=== PATIENT | female | born 1940 | race Caucasian/White ===

== ENCOUNTER 2022-07-26 18:20 | Emergency (ER) | payer OTHER, SELFPAY ==
[2022-07-26 18:30] VITALS: BP 131/58; PULSE 92; RESP 20; TEMP 36.3; O2SAT 99
--- NOTE | 2022-07-26 19:19 | ED.DIZZY ---
HPI - Dizziness General Chief Complaint: Urogenital-Female Stated Complaint: Urinary Problem Time Seen by Provider: 07/26/22 19:15 Source: patient, family, RN notes reviewed and old records reviewed Mode of arrival: ambulatory Limitations: no limitations Related Data Home Medications Medication Instructions Recorded Confirmed insulin human U-100 NPH-regulr subcut 07/26/22 70-30 mix 100 unit/mL subcutaneous susp (Novolin 70/30 U-100 Insulin) isosorbide mononitrate 30 mg 30 mg PO DAILY 07/26/22 07/26/22 tablet,extended release 24 hr lisinopril 5 mg tablet 5 mg DAILY 07/26/22 07/26/22 metformin 750 mg tablet,extended 750 mg PO DAILY 07/26/22 07/26/22 release 24 hr Allergies Allergy/AdvReac Type Severity Reaction Status Date / Time iodine Allergy Unknown Verified 07/26/22 18:32 Course Vital Signs Vital signs: Vital Signs Temperature 36.3 C L 07/26/22 18:30 Pulse Rate 92 07/26/22 18:30 Respiratory Rate 20 07/26/22 18:30 Blood Pressure 131/58 L 07/26/22 18:30 Pulse Oximetry 99 07/26/22 18:30 Oxygen Delivery Room Air 07/26/22 18:30 Temperature 36.3 C L 07/26/22 18:30 Pulse Rate 92 07/26/22 18:30 Respiratory Rate 20 07/26/22 18:30 Blood Pressure 131/58 L 07/26/22 18:30 Pulse Oximetry 99 07/26/22 18:30 Oxygen Delivery Room Air 07/26/22 18:30 MDM - Dizziness Medical Records Attestation: I reviewed the patient's medical records. Lab Data Attestation: I reviewed the patient's lab results. Lab results narrative: urine dip: Glucose negative, bilirubin negative, ketone, negative, specific gravity 1.030, blood trace,urine PH 5.5, protein negative,urobilinogen 0.2nitrate positive, leukocyte 1+ Labs: Urine Glucose Negative Reference Range: Negative Urine Bilirubin Negative Reference Range: Negative Urine Ketone Negative Reference Range: Negative Urine Specific Ada 1.030 Reference Range:1.001-1.035 Urine Blood Trace Reference Range: Negative * * Urine pH 5.5 Reference Range: 5.0-9.0 Urine Protein Negative Reference Range: Negative Urine Urobilinogen 0.2 Reference Range: 0.2-1.0 Urine Nitrate Positive Reference Range: Negative Urine Leukocyte 1+ Reference Range: Negative Urine Color Yellow Reference Range: Yellow Urine Characteristics Cloudy Critical Care Time Critical Care Time Critical Care Time: No Discharge Plan Discharge Clinical Impression: Urinary tract infection Patient Disposition: Home, Self-Care Condition: Stable Instructions: Antibiotic Form Additional Instructions: Increase fluids especially cranberry juice and water Avoid caffeine and carbonated beverages Antibiotic as directed No perfumed personal hygiene Tylenol/ibuprofen for pain or fever Follow-up with her primary care provider if further problems or concerns Recheck if you have fever over 101, nausea and vomiting. If your symptoms persist, change or worsen significantly before you can contact your personal physician then please, without delay, go to the emergency department for further evaluation. Follow-up with
--- NOTE | 2022-07-26 19:32 | ED.FEMALEGU ---
HPI - Female Genitourinary General Chief complaint: Urogenital-Female Stated complaint: Urinary Problem Time Seen by Provider: 07/26/22 19:15 Source: patient, family, RN notes reviewed and old records reviewed Mode of arrival: ambulatory Limitations: no limitations History of Present Illness HPI Narrative: 82 year old female accompanied by son with complaints of burning with urination and wants to have her urine checked. She reports that she called her doctors office and waited all day for return call which she did not receive. She reports that she was recently in the hospital with urinary tract infection and is concerned she has another infection.Son and patient are poor historian unable to give past medical history son did bring medications to clinic. Patient reports no nausea or vomiting,denies any known fevers or chills, no vaginal discharge or any perineal itching. Medication history reviewed with past RX for Bactrim. MD elicited complaint: UTI Pertinent past history: other (recent hospitalization for UTI) Onset (ago): day(s) (2) Related Data Home Medications Medication Instructions Recorded Confirmed insulin human U-100 NPH-regulr subcut 07/26/22 70-30 mix 100 unit/mL subcutaneous susp (Novolin 70/30 U-100 Insulin) isosorbide mononitrate 30 mg 30 mg PO DAILY 07/26/22 07/26/22 tablet,extended release 24 hr lisinopril 5 mg tablet 5 mg DAILY 07/26/22 07/26/22 metformin 750 mg tablet,extended 750 mg PO DAILY 07/26/22 07/26/22 release 24 hr Allergies Allergy/AdvReac Type Severity Reaction Status Date / Time iodine Allergy Unknown Verified 07/26/22 18:32 Review of Systems Review of Systems: CONSTITUTIONAL: Denies fever, chills, or sweats. CARDIOVASCULAR: Denies chest pain, palpitations, or edema. RESPIRATORY: Denies cough or dyspnea. GASTROINTESTINAL: Denies abdominal pain, nausea, vomiting, or diarrhea. GENITOURINARY: Reports dysuria, frequency, urgency. Denies flank pain or hematuria.wears depends SKIN: Denies rash or itching. MUSCULOSKELETAL: Denies back pain or myalgia. Denies CVA tenderness NEUROLOGIC: Denies headache All systems reviewed & are unremarkable except as noted in HPI and below [facility] Past Medical History Medical History (Updated 07/28/22 @ 09:04 by Renetta Johnson NP) Diabetes Hypertension UTI (urinary tract infection) Comments At time of signature, agree with nursing past medical, surgical, social and family history. There is no relevant family history pertinent to the presenting complaint Exam Narrative: GENERAL: Well-appearing, well-nourished, and in no acute distress. HEAD: Normocephalic, atraumatic. NECK: Supple. no lymphadenopathy CHEST: Clear to auscultation. No respiratory distress.SAO2 99% on room air HEART: Regular rate and rhythm. No murmur heard. Normal peripheral pulses. ABDOMEN: Soft, nontender, nondistended, normal active bowel sounds. No CVA tenderness, dysuria reported with urgency and frequency EXTREMITIES: Normal range of motion. No edema. SKIN: Warm, dry, no rash. NEURO: No focal deficits. Alert and oriented x3.is forgetful Course Course Emergency Course: Patient is aware of diagnosis, understands and agrees to treatment plan.? Anticipatory guidance given.? Patient agrees to follow-up as directed and is aware of reasons to seek care at the emergency department. Portions of this record may have been created with voice recognition software Level of Care: Express Care Visit Vital Signs Vital signs: Vital Signs Temperature 36.3 C L 07/26/22 18:30 Pulse Rate 92 07/26/22 18:30 Respiratory Rate 20 07/26/22 18:30 Blood Pressure 131/58 L 07/26/22 18:30 Pulse Oximetry 99 07/26/22 18:30 Oxygen Delivery Room Air 07/26/22 18:30 Temperature 36.3 C L 07/26/22 18:30 Pulse Rate 92 07/26/22 18:30 Respiratory Rate 20 07/26/22 18:30 Blood Pressure 131/58 L 07/26/22 18:30 Pulse Oximetry 99 07/26/22 18:30 Oxygen Delivery Room Air
== END 2022-07-26 19:41 | disposition home or self-care (01) ==
PROVIDERS: Emergency Provider Registered Nurse
DX: N39.0 Urinary tract infection, site not specified (principal); E11.9 Type 2 diabetes mellitus without complications; I10 Essential (primary) hypertension; Z79.4 Long term (current) use of insulin; Z79.84 Long term (current) use of oral hypoglycemic drugs
CPT/HCPCS: 81003; 87077; 87086; 87186; 99213; G0463

== ENCOUNTER 2023-03-14 10:58 | Inpatient (IN) | payer OTHER, SELFPAY ==
[2023-03-14] VITALS (9 sets, daily range): BP systolic 96–132; BP diastolic 59–67; PULSE 72–87; RESP 16–20; TEMP 36–36.7; O2SAT 94–98; BMI 31.3
--- NOTE | ~2023-03-14 | XR_ITS ---
EXAMINATION: XR chest 1V portable INDICATION: Shortness of breath and pneumonia TECHNIQUE: Portable AP chest at 1727 hours COMPARISON: None available FINDINGS: There is mild atelectasis of the lung bases. No pleural effusion or pneumothorax. The cardi omediastinal silhouette is normal. There is a chronic appearing deformity of the right humeral head. IMPRESSION: 1. Mild atelectasis of the lung bases. Reviewed, dictated and finalized at location F.
--- NOTE | ~2023-03-14 | CT_ITS ---
EXAMINATION: CT abdomen pelvis wo con DATE: 03/14/2023 14:55 INDICATION: Left lower quadrant pain TECHNIQUE: Computed tomography (CT) of the abdomen and pelvis was performed without intravenous contr ast. The dose-length product (DLP) was 1536.51 mGy-cm. Automated exposure control and iterative recon struction technique were employed. COMPARISON: None FINDINGS: Respiratory motion artifact limits evaluation of the lung bases. There are airspace opaciti es of the lung bases. The heart size is normal. There is calcified coronary artery atherosclerosis. T he liver, pancreas, gallbladder, and adrenal glands are normal. There are areas of cortical scarring in the kidneys. The spleen is absent. There is fecal impaction of the rectum with rectal wall thicken ing and edematous stranding of the perirectal fat. Colonic diverticulosis is present without evidence of diverticulitis. Although limited by the absence of intravenous contrast, there is a segment of sm all bowel in the left mid abdomen which demonstrates circumferential wall thickening. There is a smal l volume of associated mesenteric edema as well as upper abdominal ascites. There is calcified athero sclerosis of the aorta and many of the other arteries. There is mild periportal lymphadenopathy, like ly reactive. There is no free intraperitoneal gas. There is severe lumbar spondylosis. IMPRESSION: 1. Segment of small bowel in the left mid abdomen with wall thickening which could be due to infectio n or ischemia. 2. Fecal impaction of the rectum with findings suggestive stercoral colitis. 3. Bibasilar airspace opacities of the lungs, atelectasis versus pneumonia. Reviewed, dictated and finalized at location F. IMPRESSION: 1. Segment of small bowel in the left mid abdomen with wall thickening which co uld be due to infection or ischemia. 2. Fecal impaction of the rectum with findings suggestive stercoral colitis. 3. Bibasilar airspace opacities of the lungs, atelectasis versus pneumonia.
--- NOTE | ~2023-03-14 | CT_ITS ---
EXAMINATION: CT abdomen pelvis w con DATE: 03/15/2023 12:36 INDICATION: Abdominal pain. Bowel inflammation. Ischemia. TECHNIQUE: Computed tomography (CT) of the abdomen and pelvis was performed with 100 cc Omnipaque 350 intravenous contrast. The dose-length product was 1086.80 mGy-cm. Automated exposure control and iterative reconstruction technique were employed. COMPARISON: CT dated 03/14/2023. FINDINGS: Heart size is normal. No significant pleural or pericardial effusion. There is atherosclero sis. There is free fluid in the pelvis. There is abnormal thickening of the left colon with mild surr ounding pericolonic fatty infiltration. The liver there is a fat-containing umbilical hernia. There is trace perihepatic fluid. There is diffuse atherosclerosis of the aorta. There are stenosis a t the origin of the celiac axis, SMA and renal arteries. No evidence for aortic aneurysm. Fatty infil tration of the liver. There is cortical scarring of the right kidney. The gallbladder is present. Spl een is not identified, likely surgically absent. Small fat-containing umbilical hernia. The rectal wa ll is thickened. Moderate lumbar spondylosis. IMPRESSION: 1. Abnormal colonic wall thickening involving the descending colon with enhancement and mild surround ing pericolonic fatty infiltration. There is trace pericolonic fluid. Considerations include colitis secondary to infectious/inflammatory etiologies as well as ischemic bowel. 2: Extensive atherosclerosis without evidence for aneurysm. Stenosis at the origin of the celiac axis , SMA and renal arteries. 3: Irregular thickening of the rectal wall which may represent inflammatory change, although malignan cy is not excluded. Reviewed, dictated and finalized at location B. IMPRESSION: 1. Abnormal colonic wall thickening involving the descending colon with enhance ment and mild surrounding pericolonic fatty infiltration. There is trace raisa lonic fluid. Considerations include colitis secondary to infectious/inflammator y etiologies as well as ischemic bowel. 2: Extensive atherosclerosis without evidence for aneurysm. Stenosis at the carisa gin of the celiac axis, SMA and renal arteries. 3: Irregular thickening of the rectal wall which may represent inflammatory alice nge, although malignancy is not excluded.
[2023-03-14 12:15] LABS: Hemoglobin 15.5 g/dL (12.0-15.0); Mean Corpuscular Hemoglobin 30.3 pg (26-34); Mean Corpuscular Volume 97.8 fl (80-100); Mean Platelet Volume 12.2 fl (7.4-10.4); Platelet Count Result 210 k/mm3 (150-375); Red Blood Count 5.11 M/mm3 (4.2-5.4); Red Cell Distribution Width 14.6 % (11.5-14.5); White Blood Count 24.4 K/mm3 (4.5-10.0)
[2023-03-14 12:25] LABS: Alanine Aminotransferase 22 U/L (6-35); Albumin Level 3.5 g/dL (3.5-5.1); Alkaline Phosphatase 80 U/L (38-126); Anion Gap 11 mmol/L (8-16); Aspartate Amino Transferase 23 U/L (14-36); Bilirubin,Total 0.8 mg/dL (0.2-1.3); Blood Urea Nitrogen 18 mg/dL (7-17); Calcium 9.1 mg/dL (8.4-10.2); Carbon Dioxide 20 mmol/L (22-30); Chloride 106 mmol/L (98-107); Estimated CRCL calculation 37 ml/min; Estimated Glomerular Filt Rate 43; Glucose 297 mg/dL (65-110); Lipase 84 U/L (23-300); Potassium 4.4 mmol/L (3.4-5.0); Sodium 137 mmol/L (137-145)
[2023-03-14 12:27] LABS: Band Neutrophils Percent 6 % (0-6); Monocytes Absolute Manual 0.97 K/mm3 (0.1-0.90); Monocytes Percent Manual 4 % (3-9); Neutrophils Absolute Manual 19.52 K/mm3 (1.7-7.2); Neutrophils Percent Manual 74 % (46-73); Platelet Estimate Adequate (Adequate); Total Cells Counted 100
[2023-03-14 12:28] LABS: Schistocytes None Seen (NORMAL)
[2023-03-14] MEDS: SODIUM CHLORIDE 0.9% IV 1,000 ML 999 ML IV CONT ×2 (12:58→15:25)
[2023-03-14 13:18] LABS: Appearance Urine Turbid (Clear); Bacteria Urine 4+ /hpf; Bilirubin Urine 1+ (Negative); Blood Urine Trace (Negative); Color Urine Dark Yellow (Yellow); Glucose Urine UA Trace mg/dL (Negative); Hyaline Casts Urine Present /lpf; Ketones Urine Trace mg/dL (Negative); Leukocyte Esterase Ur 2+ LEU/UL (Negative); Need Manual Microscopic Reviewed; Nitrate Urine Positive (Negative); Non Pathogenic Casts >20; Protein Urine 2+ mg/dL (Negative); Specific Grav Ur 1.023 (1.001-1.035); Squamous Epithelial Cell Urine Few /hpf (Few); WBC Urine 51-100 /hpf
[2023-03-14 13:28] LABS: Add Urine Microscopic? YES
[2023-03-14] MEDS: cefTRIAXone 2 GM/NS 100 ML 2 GM/100 ML BAG IVPB (13:59)
--- NOTE | 2023-03-14 14:35 | ED.NAVMDI ---
HPI - Nausea/Vomiting/Diarrhea General Chief complaint: Nausea/Vomiting/Diarrhea Stated complaint: N/V, weakness with low bp Time Seen by Provider: 03/14/23 11:58 History of Present Illness HPI Narrative: Patient is an 82-year-old female with a history of hypertension, diabetes presenting with nausea and vomiting. Patient is coming from an adult daycare center where she was noted to have multiple episodes of emesis. EMS was called and found her to be hypotensive with a systolic in the 80s. They started fluids and brought her in for evaluation. Patient states that she has had an upset stomach lately and she did throw up several times this morning. She also complains of lower abdominal pain. States that she has had a lot of diarrhea. Denies further complaints. Related Data Home Medications Medication Instructions Recorded Confirmed insulin human U-100 NPH-regulr 30 unit subcut BID 07/26/22 03/15/23 70-30 mix 100 unit/mL subcutaneous susp (Novolin 70/30 U-100 Insulin) isosorbide mononitrate 30 mg 30 mg PO DAILY 07/26/22 03/15/23 tablet,extended release 24 hr lisinopril 5 mg tablet 5 mg PO DAILY 07/26/22 03/15/23 metformin 750 mg tablet,extended 750 mg PO DAILY 07/26/22 03/15/23 release 24 hr Allergies Allergy/AdvReac Type Severity Reaction Status Date / Time iodine Allergy Unknown Verified 03/14/23 11:27 Review of Systems Review of Systems: All systems reviewed & are unremarkable except as noted in HPI and below [facility] Past Medical History Medical History Diabetes Hypertension UTI (urinary tract infection) Surgical History Surgical History History of colon surgery Social History Social History Smoking status: Never smoker Alcohol intake: former Substance use: never Lack of Transportation: No Lack of Food: Never True Current Housing: I Have Housing Concerned About Future Housing: No Difficulty Paying Gas/Electric Bills: No Difficulty Paying for Meds: No Currently Unemployed: No Education: Decline to Answer Difficulty w/ Childcare or Family Care: No Spiritual care concerns: No Exam Narrative: GENERAL: Elderly female lying in bed in no acute distress, pleasant and cooperative. HEAD: Normocephalic, atraumatic. EYES: PERRLA and EOMI. ENT: Mucous membranes tacky NECK: Supple. CHEST: Clear to auscultation. No respiratory distress. HEART: Regular rate and rhythm ABDOMEN: Soft, tender in left lower quadrant and suprapubic regions without guarding or rebound EXTREMITIES: Normal range of motion. No edema. SKIN: Warm, dry, no rash. NEURO: Moving all extremities spontaneously PSYCH: Normal mood and affect. Course Vital Signs Vital signs: Vital Signs Temperature 97.6 F 03/14/23 11:20 Pulse Rate 83 03/14/23 11:20 Respiratory Rate 16 03/14/23 11:20 Blood Pressure 96/59 L 03/14/23 11:20 Pulse Oximetry 94 03/14/23 11:20 Oxygen Delivery Room Air 03/14/23 11:20 Temperature 98.3 F 03/21/23 06:00 Pulse Rate 79 03/21/23 06:00 Respiratory Rate 16 03/21/23 06:00 Blood Pressure 131/83 03/21/23 06:00 Pulse Oximetry 97 03/21/23 06:00 Oxygen Delivery Room Air 03/21/23 08:00 MDM - Nausea/Vomiting/Diarrhea MDM Narrative Medical decision making narrative: 82-year-old female presenting with diarrhea, vomiting, low blood pressure. Blood pressure soft, otherwise vitals stable. Exam remarkable for the above. Blood work concerning for leukocytosis of nearly 25. Lactic acid mildly elevated as is creatinine and BUN. UA is infected, patient has been covered with antibiotics. CT abdomen pelvis is concerning for stercoral colitis as well as the segment of wall thickening possibly infection versus ischemia. Fluids are ongoing. Patient is much more comfortable now. She re
[2023-03-14] MEDS: ACETAMINOPHEN 500 MG TABLET 1000 MG PO (15:24)
[2023-03-14 16:50] LABS: Lactic Acid Reflex 3.7 mmol/L (0.7-2.0)
--- NOTE | 2023-03-14 18:21 | ADMGEN ---
This patient, Brunilda Kathleen, was admitted to Medical Room 347-01. Patient/family oriented to hospital policies and general routines including ID bracelet, bed and alarms, visiting hours, pain management, procedures, bathroom and other care routines, personal items, smoking policy, room service/diet, and visiting hours. Information on how to activate the Rapid Response Team has been discussed. Patient/Family are encouraged to report perceived risks to care and to ask questions if they do not understand what they are told or what they should do.
[2023-03-14 19:40] LABS: Reflex Lactic Acid Yes or No Add Lactic
[2023-03-14 20:18] LABS: Lactic Acid 2.5 mmol/L (0.7-2.0)
[2023-03-14 20:28] LABS: Glucose Point of Care 228 mg/dl (65-105)
--- NOTE | 2023-03-14 20:39 | PM.IMHP ---
H&P: HPI History of Present Illness Date/Time: 03/14/23 20:39 Chief Complaint: Abdominal pain Narrative: This is an 82-year-old female with past medical history significant for insulin-dependent diabetes mellitus, hypertension. Patient presents to the emergency room due to nausea vomiting abdominal pain constipation. Generalized weakness, generalized malaise, patient was brought from adult daycare had multiple bouts of emesis and blood pressure systolic in the 80s. Preliminary workup was significant for CBC with a leukocyte count of 24,000, basic metabolic profile bicarb 20, BUN 18 creatinine 1.2 lactic acid 2.5 a urinalysis showed 50-100 per high-power field of WBCs. CT of abdomen and pelvis was reported as: EXAMINATION: CT abdomen pelvis wo con DATE: 03/14/2023 14:55 INDICATION: Left lower quadrant pain TECHNIQUE: Computed tomography (CT) of the abdomen and pelvis was performed without intravenous contrast. The dose-length product (DLP) was 1536.51 mGy-cm. Automated exposure control and iterative reconstruction technique were employed. COMPARISON: None FINDINGS: Respiratory motion artifact limits evaluation of the lung bases. There are airspace opacities of the lung bases. The heart size is normal. There is calcified coronary artery atherosclerosis. The liver, pancreas, gallbladder, and adrenal glands are normal. There are areas of cortical scarring in the kidneys. The spleen is absent. There is fecal impaction of the rectum with rectal wall thickening and edematous stranding of the perirectal fat. Colonic diverticulosis is present without evidence of diverticulitis. Although limited by the absence of intravenous contrast, there is a segment of small bowel in the left mid abdomen which demonstrates circumferential wall thickening. There is a small volume of associated mesenteric edema as well as upper abdominal ascites. There is calcified atherosclerosis of the aorta and many of the other arteries. There is mild periportal lymphadenopathy, likely reactive. There is no free intraperitoneal gas. There is severe lumbar spondylosis. IMPRESSION: 1. Segment of small bowel in the left mid abdomen with wall thickening which could be due to infection or ischemia. 2. Fecal impaction of the rectum with findings suggestive stercoral colitis. 3. Bibasilar airspace opacities of the lungs, atelectasis versus pneumonia. Review of Systems Review of Systems: Vomiting, weakness, constipation Constitutional: Constitutional: Denies chills, Reports fatigue, Denies fever(s), Denies malaise, Denies night sweats and Reports weakness Eyes: Eyes: Denies change in vision ENT: Denies dysphagia, Denies vertigo, Denies dizziness and Denies odynophagia Cardiovascular: Cardiovascular: Denies chest pain, Denies leg edema, Denies radiating jaw, neck or arm pain and Denies palpitations Respiratory: Respiratory: Denies cough, Denies excessive phlegm production and Denies dyspnea Gastrointestinal: Gastrointestinal: Reports constipation, Denies dyspepsia, Denies heartburn, Denies diarrhea and Reports vomiting Genitourinary: Genitourinary: Denies dysuria and Denies flank pain Musculoskeletal: Musculoskeletal: Denies myalgias, Denies arthralgias, Denies joint swelling and Reports muscle weakness Integumentary/Breasts: Skin/Breast: Denies rash Neurologic: Denies abnormal gait, Denies syncope, Denies focal weakness and Denies Sensory deficit (Neuro) Psychiatric: Psychiatric: Reports no additional psychiatric complaints and Reports as per HPI Endocrine: Endocrine: Denies cold intolerance, Denies fatigue, Denies flushing, Denies heat intolerance, Denies polyphagia, Denies polydipsia, Denies polyuria and Denies palpitations Hematologic/Lymphatic: Hematologic/Lymphatic: Reports no additional hematologic/lymphatic complaints and Reports as per HPI Allergic/Immunologic: Allergic/Immunologic: Reports no additional allergic/immunologic complaints and Reports as per HPI
[2023-03-15] MEDS: AZITHROMYCIN 500 MG/NS 250 ML 500 MG/250 ML BAG 250 MG IVPB ×2 (01:22→23:03)
[2023-03-15 04:40] VITALS: BP 91/43; PULSE 81; RESP 16; TEMP 36.4; O2SAT 94
[2023-03-15 06:01] LABS: Basophils Absolute Auto 0.1 K/mm3 (0.0-0.1); Basophils Percent Auto 0.3 % (0.2-1.2); Eosinophils Absolute Auto 0.1 K/mm3 (0-0.3); Eosinophils Percent Auto 0.9 % (0-4.4); Hematocrit 43.4 % (37.0-47.0); Hemoglobin 13.9 g/dL (12.0-15.0); Immature Granulocyte Absolute 0.05 K/mm3 (0.00-0.031); Immature Granulocyte Percent A 0.3 % (0-0.5); Lymphocytes Percent Auto 32.2 % (18.3-44.2); Mean Corpuscular Hemoglobin 30.5 pg (26-34); Mean Corpuscular Volume 95.2 fl (80-100); Mean Platelet Volume 12.4 fl (7.4-10.4); Monocytes Percent Auto 6.6 % (2.6-8.5); Neutrophils Absolute Auto 9.3 K/mm3 (1.3-6.7); Neutrophils Percent Auto 59.7 % (45.5-73.1); Platelet Count Result 229 k/mm3 (150-375); Red Blood Count 4.56 M/mm3 (4.2-5.4); Red Cell Distribution Width 14.6 % (11.5-14.5); White Blood Count 15.5 K/mm3 (4.5-10.0)
[2023-03-15 06:17] LABS: Anion Gap 4 mmol/L (8-16); Blood Urea Nitrogen 17 mg/dL (7-17); Calcium 8.8 mg/dL (8.4-10.2); Carbon Dioxide 25 mmol/L (22-30); Chloride 107 mmol/L (98-107); Estimated CRCL calculation 49 ml/min; Estimated Glomerular Filt Rate 60; Glucose 225 mg/dL (65-110); Sodium 136 mmol/L (137-145)
[2023-03-15 08:38] LABS: Glucose Point of Care 246 mg/dl (65-105)
[2023-03-15] MEDS: INSULIN ASPART (*BKC) 100 UNITS/ML SUB-Q ×4 (08:52→22:47)
--- NOTE | 2023-03-15 09:36 | PM.CNGS ---
Assessment and Plan Assessment and plan (1) Abnormal CT of the abdomen: Code(s): R93.5 - Abnormal findings on diagnostic imaging of other abdominal regions, including retroperitoneum Status: Acute Assessment and Plan: CT scan suggests fecal impaction with stercoral colitis, as well as a segment of small bowel wall thickening that could indicate infection vs ischemia. The patient continues to have abdominal pain this morning. Her initial CT scan was done without IV contrast. We would recommend proceeding with a CT scan of the abdomen and pelvis with IV contrast to further evaluate for possible mesenteric ischemia. She is unaware of her iodine contrast allergy and we are unable to get ahold of family. Discussed the case with Dr. Cisneros and the Radiologist. We will premedicate the patient with IV steroids and Benadryl to proceed with the CT today more urgently as this will decipher the need for urgent surgical intervention if there is evidence of mesenteric ischemia. I have made the patient NPO and started her on gentle IV fluids. (2) Stercoral colitis: Code(s): K52.89 - Other specified noninfective gastroenteritis and colitis Status: Acute Assessment and Plan: CT showed fecal impaction with findings suggestive of stercoral colitis. She was given an enema and started on laxatives. She has had multiple bowel movements through the night and another large one this morning. Continue medical treatment and monitoring. (3) Lactic acidosis: Code(s): E87.20 - Acidosis, unspecified Status: Acute Assessment and Plan: Lactic 3.7 on admission and down slightly 2.5 after IV fluids. WBC trending down today. Will further evaluate for bowel ischemia as mentioned above with CT abdomen/pelvis today. (4) UTI (urinary tract infection): Code(s): N39.0 - Urinary tract infection, site not specified Status: Acute Assessment and Plan: Antibiotics per primary team. (5) Diabetes: Code(s): E11.9 - Type 2 diabetes mellitus without complications Status: Acute (6) GAV[place] (acute kidney injury): Code(s): N17.9 - Acute kidney failure, unspecified Status: Acute Assessment and Plan: Improved today following IV fluid hydration. Continue to monitor. Plan I have discussed the patient's case and plan of care with Dr. Cisneros. History of Present Illness Consult details Consult date: 03/15/23 Reason for consult: other (Stercoral colitis, small bowel inflammation on CT) Requesting physician: Dulce Luke MD Narrative: This is an 82-year-old woman who we have been asked to see in surgical consultation for stercoral colitis and CT findings of small bowel inflammation that could be infectious or ischemic. She is seen on the medical floor with no family at the bedside. Her history is limited as she is a poor historian. She is alert and oriented x 3 but she has difficulty providing history. She was brought in by EMS from an adult day [facility] in [place], for vomiting. She reportedly goes to the adult day care on Tuesdays and , but otherwise resides with her daughter Helen. I have tried calling Helen for additional information, but she is not able to be reached by phone. The patient recalls vomiting at the day care and being brought in by ambulance. She reports having some lower abdominal pain since arriving to the hospital. In the ER, her labs were significant for a WBC count 24.4, creatinine 1.2, lactic acid 3.7, and glucose 297. Urinalysis suggests urinary tract infection. She received 2 liters of IV fluids in the ER. Repeat lactic acid 2.5. CT scan abdomen and pelvis without contrast was performed for abdominal pain as she has an iodine allergy, and this showed wall thickening of a small bowel segment which could be due to infection or ischemia, fecal impaction of the rectum with findings suggestive of stercoral colitis, and bibasilar airspace opacities of
[2023-03-15 10:07] VITALS: BP 156/70
[2023-03-15] MEDS: diphenhydrAMINE HCl INJ 50 MG/ML VIAL IV PUSH (11:37)
[2023-03-15] MEDS: methylPREDNISolone SOD SUCC 40 MG VIAL IV PUSH (11:37)
[2023-03-15] MEDS: SODIUM CHLORIDE 0.9% IV 1,000 ML 75 ML IV CONT (11:40)
[2023-03-15 11:49] LABS: Glucose Point of Care 313 mg/dl (65-105)
[2023-03-15 14:29] VITALS: BP 169/74; PULSE 87; RESP 18; TEMP 36.7; O2SAT 95
[2023-03-15] MEDS: cefTRIAXone 2 GM/NS 100 ML 2 GM/100 ML BAG IVPB (14:33)
[2023-03-15] MEDS: metroNIDAZOLE 500 MG/ISO 100ML 500 MG/100 ML BAG 100 MG IVPB ×3 (14:33→23:02)
--- NOTE | 2023-03-15 16:08 | PM.IMPN ---
Progress Note: A&P Assessment and Plan (1) UTI (urinary tract infection): Code(s): N39.0 - Urinary tract infection, site not specified Status: Acute Assessment and Plan: Continue Rocephin days 2 Await cultures (2) Lung infiltrate: Code(s): R91.8 - Other nonspecific abnormal finding of lung field Status: Acute Assessment and Plan: Per CT AP, Chest xray ordered On Rocephin and Zithromax Await cultures (3) Nausea and vomiting: Code(s): R11.2 - Nausea with vomiting, unspecified Status: Acute Assessment and Plan: Likely secondary to acute illness Supportive care On clear liquid diet Extensive constipation CT abdomen and pelvis reviewed f/u repeat CT AP with contrast to rule out ischemic bowel (4) GAVIOTA (acute kidney injury): Code(s): N17.9 - Acute kidney failure, unspecified Status: Acute Assessment and Plan: Likely pre renal azotemia resolved continue holding lisinopril for now (5) Lactic acidosis: Code(s): E87.20 - Acidosis, unspecified Status: Acute Assessment and Plan: Likely secondary to sepsis Will hold metformin (6) Diabetes: Code(s): E11.9 - Type 2 diabetes mellitus without complications Status: Acute Assessment and Plan: SSI with accucheks and adjust as needed (7) Hypertension: Code(s): I10 - Essential (primary) hypertension Status: Acute Assessment and Plan: Restart isosorbide as needed Holding lisinopril Subjective Date/time seen: 03/15/23 16:08 Interval history: Patient comfortable at bedside, awaiting CT AP for bowel ischemia eval. Review of Systems Review of Systems: Vomiting, weakness, constipation Constitutional: Constitutional: Denies chills, Denies fatigue, Denies fever(s), Denies malaise, Denies night sweats and Reports weakness Eyes: Eyes: Denies change in vision ENT: Denies dysphagia, Denies vertigo, Denies dizziness and Denies odynophagia Cardiovascular: Cardiovascular: Denies chest pain, Denies syncope, Denies leg edema, Denies radiating jaw, neck or arm pain, Denies palpitations and Denies dyspnea Respiratory: Respiratory: Denies cough, Denies excessive phlegm production and Denies dyspnea Gastrointestinal: Gastrointestinal: Reports constipation, Denies dysphagia, Denies dyspepsia, Denies heartburn, Denies diarrhea, Denies odynophagia and Reports vomiting Genitourinary: Genitourinary: Denies dysuria and Denies flank pain Musculoskeletal: Musculoskeletal: Denies abnormal gait, Denies myalgias, Denies arthralgias, Denies joint swelling and Reports muscle weakness Integumentary/Breasts: Skin/Breast: Denies rash Neurologic: Denies abnormal gait, Denies vertigo, Denies dizziness, Denies syncope, Denies focal weakness, Denies Sensory deficit (Neuro) and Reports weakness Psychiatric: Psychiatric: Reports no additional psychiatric complaints and Reports as per HPI Endocrine: Endocrine: Denies cold intolerance, Denies fatigue, Denies flushing, Denies heat intolerance, Denies polyphagia, Denies polydipsia, Denies polyuria and Denies palpitations Hematologic/Lymphatic: Hematologic/Lymphatic: Reports no additional hematologic/lymphatic complaints and Reports as per HPI Allergic/Immunologic: Allergic/Immunologic: Reports no additional allergic/immunologic complaints and Reports as per HPI Exam Narrative: Patient is laying in bed Const: General: cooperative, comfortable, no acute distress, well developed, alert, awake, tired appearing and average body habitus Nutritional Appearance: average body habitus Orientation/consciousness: patient oriented x3 HENMT: Head: normal to inspection, normocephalic and atraumatic Ears: hearing grossly normal bilaterally Face/Nose/Sinus: normal facial exam Face and sinus: normal facial exam Eyes: General: appearance normal, both eyes and all related structures Pupils: Equal, round and reactive pupils pre
[2023-03-15 17:02] LABS: Glucose Point of Care 291 mg/dl (65-105)
[2023-03-15] MEDS: SENNOSIDES 8.6 MG TABLET PO (20:21)
[2023-03-15 20:43] LABS: Glucose Point of Care 388 mg/dl (65-105)
[2023-03-15 20:44] VITALS: BP 150/82; PULSE 84; RESP 16; TEMP 36.9; O2SAT 95
[2023-03-15 23:57] LABS: Glucose Point of Care 329 mg/dl (65-105)
[2023-03-15 23:59] LABS: Glucose Point of Care 334 mg/dl (65-105)
[2023-03-16] MEDS: INSULIN ASPART (*BKC) 100 UNITS/ML SUB-Q ×7 (00:12→21:16)
[2023-03-16 05:28] VITALS: BP 144/78; PULSE 79; RESP 16; TEMP 36.7; O2SAT 97
[2023-03-16] MEDS: metroNIDAZOLE 500 MG/ISO 100ML 500 MG/100 ML BAG 100 MG IVPB ×3 (05:32→21:17)
[2023-03-16 05:49] LABS: Basophils Percent Auto 0.2 % (0.2-1.2); Eosinophils Percent Auto 0.1 % (0-4.4); Hematocrit 43.7 % (37.0-47.0); Immature Granulocyte Absolute 0.08 K/mm3 (0.00-0.031); Immature Granulocyte Percent A 0.4 % (0-0.5); Lymphocytes Absolute Auto 4.63 K/mm3 (0.9-3.2); Lymphocytes Percent Auto 24.9 % (18.3-44.2); Mean Corpuscular Hemoglobin 30.3 pg (26-34); Mean Corpuscular Volume 94.6 fl (80-100); Mean Platelet Volume 12.3 fl (7.4-10.4); Monocytes Absolute Auto 0.9 K/mm3 (0.1-0.6); Monocytes Percent Auto 4.8 % (2.6-8.5); Neutrophils Percent Auto 69.6 % (45.5-73.1); Platelet Count Result 253 k/mm3 (150-375); Red Blood Count 4.62 M/mm3 (4.2-5.4); Red Cell Distribution Width 14.1 % (11.5-14.5); White Blood Count 18.6 K/mm3 (4.5-10.0)
[2023-03-16 05:58] LABS: Lactic Acid Reflex 1.6 mmol/L (0.7-2.0)
[2023-03-16 05:59] LABS: Alanine Aminotransferase 18 U/L (6-35); Albumin Level 3.7 g/dL (3.5-5.1); Alkaline Phosphatase 84 U/L (38-126); Anion Gap 9 mmol/L (8-16); Aspartate Amino Transferase 24 U/L (14-36); Bilirubin,Total 0.8 mg/dL (0.2-1.3); Blood Urea Nitrogen 12 mg/dL (7-17); Calcium 9.1 mg/dL (8.4-10.2); Carbon Dioxide 20 mmol/L (22-30); Chloride 105 mmol/L (98-107); Estimated CRCL calculation 55 ml/min; Estimated Glomerular Filt Rate > 60; Glucose 263 mg/dL (65-110); Potassium 3.8 mmol/L (3.4-5.0); Sodium 134 mmol/L (137-145)
[2023-03-16 08:57] LABS: Glucose Point of Care 279 mg/dl (65-105)
--- NOTE | 2023-03-16 10:06 | PM.IMPN ---
Progress Note: A&P Assessment and Plan (1) UTI (urinary tract infection): Code(s): N39.0 - Urinary tract infection, site not specified Status: Acute Assessment and Plan: Continue Rocephin days 2 Await cultures (2) Lung infiltrate: Code(s): R91.8 - Other nonspecific abnormal finding of lung field Status: Acute Assessment and Plan: Per CT AP, Chest xray ordered On Rocephin and Zithromax Await cultures (3) Nausea and vomiting: Code(s): R11.2 - Nausea with vomiting, unspecified Status: Acute (4) GAVIOTA (acute kidney injury): Code(s): N17.9 - Acute kidney failure, unspecified Status: Acute Assessment and Plan: Likely pre renal azotemia resolved continue holding lisinopril for now (5) Lactic acidosis: Code(s): E87.20 - Acidosis, unspecified Status: Acute Assessment and Plan: Likely secondary to sepsis Will hold metformin (6) Diabetes: Code(s): E11.9 - Type 2 diabetes mellitus without complications Status: Acute Assessment and Plan: SSI with accucheks and adjust as needed (7) Hypertension: Code(s): I10 - Essential (primary) hypertension Status: Acute Assessment and Plan: Restart isosorbide as needed Holding lisinopril Plan (1) UTI (urinary tract infection): ?Code(s): N39.0 - Urinary tract infection, site not specified ?Status:?Acute ?Assessment and Plan: on Rocephin, has switched to cefepime, worsening leukocytosis Gram-negative bacilli (2) Lung infiltrate: ?Code(s): R91.8 - Other nonspecific abnormal finding of lung field ?Status:?Acute ?Assessment and Plan: Per CT AP, Chest xray ordered on rocephin 2 g and Zithromax, add Flagyl IV and switch to cefepime IV, continue Z-Emeka (3) Nausea and vomiting: ?Code(s): R11.2 - Nausea with vomiting, unspecified ?Status:?Acute ?Assessment and Plan: Likely secondary to acute illness Supportive care On clear liquid diet Extensive constipation CT abdomen and pelvis reviewed CT AP with contrast 03/15 1. Abnormal colonic wall thickening involving the descending colon with enhancement and mild surrounding pericolonic fatty infiltration. There is trace pericolonic fluid. Considerations include colitis secondary to infectious/inflammatory etiologies as well as ischemic bowel. 2: Extensive atherosclerosis without evidence for aneurysm. Stenosis at the origin of the celiac axis, SMA and renal arteries. 3: Irregular thickening of the rectal wall which may represent inflammatory change, although malignancy is not excluded. Given possibility of acute infected gastroenteritis, Switch ceftriaxone 2 g IV daily, to cefepime IV add Flagyl 500 mg q.8 hours Follow-up stool culture, C diff screening (4) GAVIOTA (acute kidney injury): ?Code(s): N17.9 - Acute kidney failure, unspecified ?Status:?Acute ?Assessment and Plan: Likely pre renal azotemia resolved continue holding? lisinopril for now (5) Lactic acidosis: ?Code(s): E87.20 - Acidosis, unspecified ?Status:?Acute ?Assessment and Plan: Likely secondary to sepsis Will hold metformin (6) Diabetes: ? ??Code(s)E11.9 - Type 2 diabetes mellitus without complications ?Status:?Acute ?Assessment and Plan: SSI with accucheks and adjust as needed (7) Hypertension: ?Code(s): I10 - Essential (primary) hypertension ?Status:?Acute ?Assessment and Plan: Restart isosorbide as needed Holding lisinopril Subjective Date/time seen: 03/16/23 10:06 Interval history: I saw and examined the patient today, patient still has diarrhea today, abdomen pain nausea vomiting improving. Leukocytosis getting worse, afebrile Exam Narrative: GENERAL: Pleasant, in no acute distress. Well-nourished. - EYES: EOMI. Anicteric. - HENT: Moist mucous membranes. - LUNGS: Clear to auscultation bilaterally, no wheezing, rh
[2023-03-16 11:59] LABS: Glucose Point of Care 434 mg/dl (65-105)
[2023-03-16] MEDS: CEFEPIME 2 GM/NS 50 ML 2 GM/50 ML BAG IVPB ×2 (12:52→21:16)
[2023-03-16 14:01] VITALS: BP 141/64; PULSE 76; RESP 16; TEMP 35.9; O2SAT 97
--- NOTE | 2023-03-16 14:21 | PM.PNGS ---
Progress Note: A&P Assessment and Plan (1) Stercoral colitis: Code(s): K52.89 - Other specified noninfective gastroenteritis and colitis Status: Acute Assessment and Plan: Repeat CT abdomen pelvis with contrast yesterday showed descending colitis and normal small bowel. Fecal impaction and abdominal pain resolved. Diet advanced to solids today. Continue medical management of the colitis. Abdominal exam is benign. No indication for surgical intervention at this time. (2) Lactic acidosis: Code(s): E87.20 - Acidosis, unspecified Status: Acute Assessment and Plan: Lactic acid normalized. (3) UTI (urinary tract infection): Code(s): N39.0 - Urinary tract infection, site not specified Status: Acute Assessment and Plan: Antibiotics per primary team. (4) Diabetes: Code(s): E11.9 - Type 2 diabetes mellitus without complications Status: Acute (5) GAVIOTA (acute kidney injury): Code(s): N17.9 - Acute kidney failure, unspecified Status: Acute Assessment and Plan: Resolved following IV fluid hydration Plan I have discussed the patient's case and plan of care with Dr. Zepeda. Subjective Subjective Date/Time Seen: 03/16/23 12:21 Patient reports: no new complaints, feels better, tolerating liquids well, flatus, diarrhea (yesterday, no BM yet today) and afebrile Interval history: Patient seen today. She states she feels much better. She denies any abdominal pain, nausea, or vomiting. She has been tolerating liquids and was advanced to a regular diabetic diet for lunch. She had multiple episodes of diarrhea yesterday, but this has slowed down. No bowel movements this morning. She is eager to eat solid foods and is hungry. Exam Const: General: comfortable and no acute distress GI: Inspection: non-distended GI Palp: Yes Soft to palpation, Yes Tenderness to palpation present (GI) (very mild LLQ tenderness), No Guarding due to palpation present (GI) and No Rebound tenderness present Auscultation: normal bowel sounds Objective Data Vital Signs Vital Signs: Vital Signs - 24 hr 03/15/23 14:29 03/15/23 20:44 03/16/23 05:28 Temperature 98.1 F 98.4 F 98.0 F Pulse Rate 87 84 79 Respiratory Rate 18 16 16 Blood Pressure 169/74 H 150/82 H 144/78 H Pulse Oximetry 95 95 97 Oxygen Delivery 03/16/23 08:00 03/16/23 14:01 Temperature 96.6 F L Pulse Rate 76 Respiratory Rate 16 Blood Pressure 141/64 H Pulse Oximetry 97 Oxygen Delivery Room Air Intake/Output Intake/Output: Intake & Output 03/13/23 03/14/23 03/15/23 03/16/23 23:59 23:59 23:59 23:59 Intake Total 2100 1460 1070 Output Total 75 1050 600 Balance 2024 410 470 Meds/Results Medications: Active Medications Generic Name Dose Route Start Last Admin Trade Name Freq PRN Reason Stop Dose Admin Dextrose 12.5 gm 03/16/23 12:00 Dextrose 50% 25 Gm/50 Ml Syringe IV PUSH PRN PRN Hypoglycemia Protocol Glucagon 1 mg 03/16/23 12:00 Glucagon For Inj 1 Mg Vial IM PRN PRN Hypoglycemia Protocol Glucose 15 gm 03/16/23 12:00 Glucose Oral Gel 15 Gm Of Glucse In 37.5 Gm Tube PO PRN PRN Hypoglycemia Protocol Azithromycin 500 mg in 250 mls @ 250 mls/hr 03/15/23 00:00 03/16/23 01:44 Zithromax IVPB Infused Q24H SARAH Infusion Metronidazole 500 mg in 100 mls @ 100 mls/hr 03/16/23 14:00 03/16/23 13:02 Flagyl 500 Mg/Iso Soln 100 Ml IVPB 100 mls/hr Q8HR SARAH Administration Cefepime HCl 2 gm in 50 mls @ 100 mls/hr 03/16/23 12:00 03/16/23 12:52 Maxipime 2 Gm/Ns 50 Ml IVPB 100 mls/hr Q8HR SARAH Administration Dextrose 1,000 mls @ 100 mls/hr 03/16/23 12:00 Dextrose 5% 1,000 Ml IVPB PRN PRN Hypoglycemia Protocol Insulin Aspart 4 units 03/15/23 08:00 03/16/23 12:53 Insulin Aspart (*Bkc) 100 Units/Ml 0.05 units/kg (4 units) 4 units SUB-Q Administration TID
--- NOTE | 2023-03-16 16:58 | PC.NURSE ---
Diabetic education provided to caregiver/daughter. Pt receives diabetic medication including insulin. They have not been checking her blood sugars regularly. I have included in discharge packet diabetic information. And have provided a diabetic booklet for pt and caregiver. Extensive education on the importance of blood sugar checks before each meal and bed time. Keeping track of blood sugars for doctors appts. And carbohydrate counting, meal planning and long-term effects of untreated blood sugars. Family was greatful for the information and all questions answered.
[2023-03-16 17:30] LABS: Glucose Point of Care 246 mg/dl (65-105)
[2023-03-16 21:16] LABS: Glucose Point of Care 262 mg/dl (65-105)
[2023-03-16] MEDS: SENNOSIDES 8.6 MG TABLET PO (21:16)
[2023-03-16 22:22] VITALS: BP 140/49; PULSE 73; RESP 18; TEMP 36.8; O2SAT 96
[2023-03-17] MEDS: AZITHROMYCIN 500 MG/NS 250 ML 500 MG/250 ML BAG 250 MG IVPB
[2023-03-17] MEDS: metroNIDAZOLE 500 MG/ISO 100ML 500 MG/100 ML BAG 100 MG IVPB ×3 (05:38→21:21)
[2023-03-17] MEDS: CEFEPIME 2 GM/NS 50 ML 2 GM/50 ML BAG IVPB ×3 (05:38→21:17)
[2023-03-17 06:00] VITALS: BP 157/77; PULSE 72; RESP 18; TEMP 36.5; O2SAT 96
[2023-03-17 08:26] LABS: Glucose Point of Care 288 mg/dl (65-105)
[2023-03-17] MEDS: INSULIN ASPART (*BKC) 100 UNITS/ML SUB-Q ×7 (08:54→21:19)
[2023-03-17 09:14] VITALS: O2SAT 96
--- NOTE | 2023-03-17 09:21 | PM.IMPN ---
Progress Note: A&P Assessment and Plan (1) UTI (urinary tract infection): Code(s): N39.0 - Urinary tract infection, site not specified Status: Acute (2) Lung infiltrate: Code(s): R91.8 - Other nonspecific abnormal finding of lung field Status: Acute (3) Nausea and vomiting: Code(s): R11.2 - Nausea with vomiting, unspecified Status: Acute (4) GAVIOTA (acute kidney injury): Code(s): N17.9 - Acute kidney failure, unspecified Status: Acute Assessment and Plan: w (5) Lactic acidosis: Code(s): E87.20 - Acidosis, unspecified Status: Acute (6) Diabetes: Code(s): E11.9 - Type 2 diabetes mellitus without complications Status: Acute Assessment and Plan: (7) Hypertension: Code(s): I10 - Essential (primary) hypertension Status: Acute Assessment and Plan: Restart isosorbide as needed Holding lisinopril Plan (1) UTI (urinary tract infection): ?Code(s): N39.0 - Urinary tract infection, site not specified ?Status:?Acute ?Assessment and Plan: on Rocephin, has switched to cefepime, worsening [id number] 03/17 Urine culture grows E coli, with multiple antibiotics resistance, identified as ESBL, susceptible cefepime c/w cefepime today (2) Lung infiltrate: ?Code(s): R91.8 - Other nonspecific abnormal finding of lung field ?Status:?Acute ?Assessment and Plan: Per CT AP, Chest xray ordered on rocephin 2 g and Zithromax, add Flagyl IV and switch to cefepime IV, continue Z-Emeka (3) Nausea and vomiting: ?Code(s): R11.2 - Nausea with vomiting, unspecified ?Status:?Acute ?Assessment and Plan: Likely secondary to acute illness Supportive care On clear liquid diet Extensive constipation CT abdomen and pelvis reviewed CT AP with contrast 03/15 1. Abnormal colonic wall thickening involving the descending colon with enhancement and mild surrounding pericolonic fatty infiltration. There is trace pericolonic fluid. Considerations include colitis secondary to infectious/inflammatory etiologies as well as ischemic bowel. 2: Extensive atherosclerosis without evidence for aneurysm. Stenosis at the origin of the celiac axis, SMA and renal arteries. 3: Irregular thickening of the rectal wall which may represent inflammatory change, although malignancy is not excluded. Given possibility of acute infected gastroenteritis, Switch ceftriaxone 2 g IV daily, to cefepime IV add Flagyl 500 mg q.8 hours Follow-up stool culture, C diff screening (4) GAVIOTA (acute kidney injury): ?Code(s): N17.9 - Acute kidney failure, unspecified ?Status:?Acute ?Assessment and Plan: Likely pre renal azotemia resolved continue holding? lisinopril for now (5) Lactic acidosis: ?Code(s): E87.20 - Acidosis, unspecified ?Status:?Acute ?Assessment and Plan: Likely secondary to sepsis Will hold metformin (6) Diabetes: ? ??Code(s)E11.9 - Type 2 diabetes mellitus without complications ?Status:?Acute ?Assessment and Plan: SSI with accucheks and adjust as needed (7) Hypertension: ?Code(s): I10 - Essential (primary) hypertension ?Status:?Acute ?Assessment and Plan: Restart isosorbide as needed Holding lisinopril Subjective Date/time seen: 03/17/23 09:21 Interval history: I saw and examined the patient today, patient still has diarrhea today, abdomen pain nausea vomiting improving. Leukocytosis getting worse, afebrile Exam Narrative: GENERAL: Pleasant, in no acute distress. Well-nourished. - EYES: EOMI. Anicteric. - HENT: Moist mucous membranes. - LUNGS: Clear to auscultation bilaterally, no wheezing, rhonchi, or rales. - CARDIOVASCULAR: Regular rate and rhythm. No murmur. No JVD. - ABDOMEN: Soft, some lower abdomen tender and non-distended. No palpable masses. - EXTREMITIES: No edema. Peripheral pulses 2+. Non-tender. - NEUROLOGIC: No focal n
[2023-03-17 11:53] LABS: Basophils Absolute Auto 0.1 K/mm3 (0.0-0.1); Basophils Percent Auto 0.3 % (0.2-1.2); Eosinophils Absolute Auto 0.1 K/mm3 (0-0.3); Eosinophils Percent Auto 0.9 % (0-4.4); Hematocrit 43.6 % (37.0-47.0); Immature Granulocyte Absolute 0.06 K/mm3 (0.00-0.031); Immature Granulocyte Percent A 0.4 % (0-0.5); Lymphocytes Absolute Auto 4.96 K/mm3 (0.9-3.2); Lymphocytes Percent Auto 31.9 % (18.3-44.2); Mean Corpuscular HGB Conc 32.1 g/dl (32-36); Mean Corpuscular Hemoglobin 29.9 pg (26-34); Mean Corpuscular Volume 93.2 fl (80-100); Mean Platelet Volume 12.5 fl (7.4-10.4); Monocytes Percent Auto 6.1 % (2.6-8.5); Neutrophils Absolute Auto 9.4 K/mm3 (1.3-6.7); Neutrophils Percent Auto 60.4 % (45.5-73.1); Platelet Count Result 231 k/mm3 (150-375); Red Blood Count 4.68 M/mm3 (4.2-5.4); Red Cell Distribution Width 14.2 % (11.5-14.5); White Blood Count 15.6 K/mm3 (4.5-10.0)
[2023-03-17 12:04] LABS: Anion Gap 10 mmol/L (8-16); Blood Urea Nitrogen 14 mg/dL (7-17); Calcium 8.6 mg/dL (8.4-10.2); Carbon Dioxide 21 mmol/L (22-30); Chloride 106 mmol/L (98-107); Estimated CRCL calculation 55 ml/min; Estimated Glomerular Filt Rate > 60; Glucose 241 mg/dL (65-110); Potassium 3.5 mmol/L (3.4-5.0); Sodium 137 mmol/L (137-145)
[2023-03-17 12:26] LABS: Glucose Point of Care 247 mg/dl (65-105)
[2023-03-17 14:57] VITALS: BP 167/76; PULSE 81; RESP 18; TEMP 36.4; O2SAT 97
--- NOTE | 2023-03-17 15:59 | PM.PNGS ---
Progress Note: A&P Assessment and Plan (1) Stercoral colitis: Code(s): K52.89 - Other specified noninfective gastroenteritis and colitis Status: Acute Assessment and Plan: exam benign, rachel diet and having bowel fxn, cont abx, no acute surgical issues at this point, ok to dc from surgical standpoint Subjective Subjective Date/Time Seen: 03/17/23 15:59 Interval history: feels pretty good, no abd pain, +bowel fxn, rachel diet Review of Systems Review of Systems: All systems reviewed & are unremarkable except as noted in HPI and below Exam Const: General: cooperative, comfortable and no acute distress Resp: Auscultation: clear to auscultation bilaterally Cardio: Rate: regular rate Rhythm: regular rhythm GI: Inspection: normal to inspection and non-distended GI Palp: No abdominal tenderness, Yes Soft to palpation, No Tenderness to palpation present (GI), No Guarding due to palpation present (GI) and No Rigid due to palpation Objective Data Vital Signs Vital Signs: Vital Signs - 24 hr 03/16/23 22:22 03/17/23 06:00 03/17/23 09:14 Temperature 36.8 C 36.5 C Pulse Rate 73 72 Respiratory Rate 18 18 Blood Pressure 140/49 L 157/77 H Pulse Oximetry 96 96 96 Oxygen Delivery Room Air 03/17/23 14:57 Temperature 36.4 C Pulse Rate 81 Respiratory Rate 18 Blood Pressure 167/76 H Pulse Oximetry 97 Oxygen Delivery Intake/Output Intake/Output: Intake & Output 03/14/23 03/15/23 03/16/23 03/17/23 23:59 23:59 23:59 23:59 Intake Total 2100 1460 2060 1110 Output Total 75 1050 1200 800 Balance 2024 410 860 310 Meds/Results Medications: Active Medications Generic Name Dose Route Start Last Admin Trade Name Freq PRN Reason Stop Dose Admin Dextrose 12.5 gm 03/16/23 12:00 Dextrose 50% 25 Gm/50 Ml Syringe IV PUSH PRN PRN Hypoglycemia Protocol Glucagon 1 mg 03/16/23 12:00 Glucagon For Inj 1 Mg Vial IM PRN PRN Hypoglycemia Protocol Glucose 15 gm 03/16/23 12:00 Glucose Oral Gel 15 Gm Of Glucse In 37.5 Gm Tube PO PRN PRN Hypoglycemia Protocol Azithromycin 500 mg in 250 mls @ 250 mls/hr 03/15/23 00:00 03/17/23 00:00 Zithromax IVPB 250 mls/hr Q24H SARAH Administration Metronidazole 500 mg in 100 mls @ 100 mls/hr 03/16/23 14:00 03/17/23 13:52 Flagyl 500 Mg/Iso Soln 100 Ml IVPB 100 mls/hr Q8HR SARAH Administration Cefepime HCl 2 gm in 50 mls @ 100 mls/hr 03/16/23 12:00 03/17/23 15:03 Maxipime 2 Gm/Ns 50 Ml IVPB 100 mls/hr Q8HR SARAH Administration Dextrose 1,000 mls @ 100 mls/hr 03/16/23 12:00 Dextrose 5% 1,000 Ml IVPB PRN PRN Hypoglycemia Protocol Insulin Aspart 4 units 03/15/23 08:00 03/17/23 12:24 Insulin Aspart (*Bkc) 100 Units/Ml 0.05 units/kg (4 units) 4 units SUB-Q Administration TIDWM [facility] Insulin Aspart 1 - 2 units 03/15/23 22:39 03/16/23 21:16 Insulin Aspart (*Bkc) 100 Units/Ml SUB-Q 1 units HS [facility] Administration Protocol Insulin Aspart 4 - 8 units 03/16/23 12:00 03/17/23 12:25 Insulin Aspart (*Bkc) 100 Units/Ml SUB-Q 4 units TIDWM [facility] Administration Protocol Non-Formulary Medication 750 mg 03/16/23 09:00 03/17/23 13:59 Metformin PO 04/15/23 08:59 Not Given DAILY [facility] Polyethylene Glycol 17 gm 03/15/23 04:13 Polyethylene Glycol 3350 17 Gm Powd.Pack PO QAM PRN Constipation Senna 8.6 mg 03/15/23 21:00 03/16/23 21:16 Sennosides 8.6 Mg Tablet PO 8.6 mg HS SARAH Administration Radiology Results: ITS Impressions Abdomen/Pelvis CT 03/15/23 12:50 IMPRESSION: 1. Abnormal colonic wall thickening involving the descending colon with enhancement and mild surrounding pericolonic fatty infiltration. There is trace pericolonic fluid. Considerations include colitis secondary to infectious/inflammatory etiologies as well as ischemic bowel. 2: Extensive atherosclerosis without evidence for ane
[2023-03-17 17:57] LABS: Glucose Point of Care 261 mg/dl (65-105)
[2023-03-17 21:09] VITALS: BP 125/50; PULSE 78; RESP 16; TEMP 36.6; O2SAT 96
[2023-03-17] MEDS: SENNOSIDES 8.6 MG TABLET PO (21:19)
[2023-03-17 21:58] LABS: Glucose Point of Care 265 mg/dl (65-105)
[2023-03-18] MEDS: AZITHROMYCIN 500 MG/NS 250 ML 500 MG/250 ML BAG 250 MG IVPB (00:54)
[2023-03-18 05:11] VITALS: BP 164/78; PULSE 80; RESP 16; TEMP 36.5; O2SAT 97
[2023-03-18 06:18] LABS: Basophils Percent Auto 0.3 % (0.2-1.2); Eosinophils Absolute Auto 0.1 K/mm3 (0-0.3); Eosinophils Percent Auto 0.8 % (0-4.4); Hematocrit 42.3 % (37.0-47.0); Hemoglobin 14.2 g/dL (12.0-15.0); Immature Granulocyte Absolute 0.05 K/mm3 (0.00-0.031); Immature Granulocyte Percent A 0.3 % (0-0.5); Lymphocytes Percent Auto 36.4 % (18.3-44.2); Mean Corpuscular HGB Conc 33.6 g/dl (32-36); Mean Corpuscular Hemoglobin 30.9 pg (26-34); Mean Corpuscular Volume 92.2 fl (80-100); Mean Platelet Volume 12.3 fl (7.4-10.4); Monocytes Percent Auto 6.7 % (2.6-8.5); Neutrophils Absolute Auto 8.1 K/mm3 (1.3-6.7); Neutrophils Percent Auto 55.5 % (45.5-73.1); Platelet Count Result 228 k/mm3 (150-375); Red Blood Count 4.59 M/mm3 (4.2-5.4); Red Cell Distribution Width 13.9 % (11.5-14.5); White Blood Count 14.6 K/mm3 (4.5-10.0)
[2023-03-18] MEDS: metroNIDAZOLE 500 MG/ISO 100ML 500 MG/100 ML BAG 100 MG IVPB ×3 (06:19→21:03)
[2023-03-18] MEDS: CEFEPIME 2 GM/NS 50 ML 2 GM/50 ML BAG IVPB ×3 (06:19→21:03)
[2023-03-18 06:28] LABS: Anion Gap 8 mmol/L (8-16); Blood Urea Nitrogen 14 mg/dL (7-17); Calcium 8.4 mg/dL (8.4-10.2); Carbon Dioxide 22 mmol/L (22-30); Chloride 107 mmol/L (98-107); Estimated CRCL calculation 55 ml/min; Estimated Glomerular Filt Rate > 60; Glucose 291 mg/dL (65-110); Potassium 3.6 mmol/L (3.4-5.0); Sodium 137 mmol/L (137-145)
[2023-03-18 08:21] LABS: Glucose Point of Care 304 mg/dl (65-105)
[2023-03-18] MEDS: INSULIN ASPART (*BKC) 100 UNITS/ML SUB-Q ×7 (09:20→20:59)
[2023-03-18 12:07] LABS: Glucose Point of Care 325 mg/dl (65-105)
--- NOTE | 2023-03-18 13:15 | PM.PNGS ---
Progress Note: A&P Assessment and Plan (1) Stercoral colitis: Code(s): K52.89 - Other specified noninfective gastroenteritis and colitis Status: Acute Assessment and Plan: exam benign, rachel diet, +bowel fxn, cont abx Subjective Subjective Date/Time Seen: 03/18/23 13:15 Interval history: no abd pain, rachel diet Review of Systems Review of Systems: All systems reviewed & are unremarkable except as noted in HPI and below Exam Const: General: cooperative, comfortable and no acute distress Resp: Auscultation: clear to auscultation bilaterally Cardio: Rate: regular rate Rhythm: regular rhythm GI: Inspection: normal to inspection and non-distended GI Palp: No abdominal tenderness, Yes Soft to palpation and No Tenderness to palpation present (GI) Objective Data Vital Signs Vital Signs: Vital Signs - 24 hr 03/17/23 14:57 03/17/23 21:09 03/17/23 20:00 Temperature 36.4 C 36.6 C Pulse Rate 81 78 Respiratory Rate 18 16 Blood Pressure 167/76 H 125/50 L Pulse Oximetry 97 96 Oxygen Delivery Room Air 03/18/23 05:11 Temperature 36.5 C Pulse Rate 80 Respiratory Rate 16 Blood Pressure 164/78 H Pulse Oximetry 97 Oxygen Delivery Intake/Output Intake/Output: Intake & Output 03/15/23 03/16/23 03/17/23 03/18/23 23:59 23:59 23:59 23:59 Intake Total 1460 2060 2200 730 Output Total 1050 1200 800 Balance 839 814 1989 730 Meds/Results Medications: Active Medications Generic Name Dose Route Start Last Admin Trade Name Freq PRN Reason Stop Dose Admin Dextrose 12.5 gm 03/16/23 12:00 Dextrose 50% 25 Gm/50 Ml Syringe IV PUSH PRN PRN Hypoglycemia Protocol Glucagon 1 mg 03/16/23 12:00 Glucagon For Inj 1 Mg Vial IM PRN PRN Hypoglycemia Protocol Glucose 15 gm 03/16/23 12:00 Glucose Oral Gel 15 Gm Of Glucse In 37.5 Gm Tube PO PRN PRN Hypoglycemia Protocol Azithromycin 500 mg in 250 mls @ 250 mls/hr 03/15/23 00:00 03/18/23 00:54 Zithromax IVPB 250 mls/hr Q24H SARAH Administration Metronidazole 500 mg in 100 mls @ 100 mls/hr 03/16/23 14:00 03/18/23 06:19 Flagyl 500 Mg/Iso Soln 100 Ml IVPB 100 mls/hr Q8HR SARAH Administration Cefepime HCl 2 gm in 50 mls @ 100 mls/hr 03/16/23 12:00 03/18/23 06:50 Maxipime 2 Gm/Ns 50 Ml IVPB Infused Q8HR SARAH Infusion Dextrose 1,000 mls @ 100 mls/hr 03/16/23 12:00 Dextrose 5% 1,000 Ml IVPB PRN PRN Hypoglycemia Protocol Insulin Aspart 4 units 03/15/23 08:00 03/18/23 12:17 Insulin Aspart (*Bkc) 100 Units/Ml 0.05 units/kg (4 units) 4 units SUB-Q Administration TIDWM [facility] Insulin Aspart 1 - 2 units 03/15/23 22:39 03/17/23 21:19 Insulin Aspart (*Bkc) 100 Units/Ml SUB-Q 1 units HS SARAH Administration Protocol Insulin Aspart 4 - 8 units 03/16/23 12:00 03/18/23 12:18 Insulin Aspart (*Bkc) 100 Units/Ml SUB-Q 6 units TIDWM SARAH Administration Protocol Non-Formulary Medication 750 mg 03/16/23 09:00 03/17/23 13:59 Metformin PO 04/15/23 08:59 Not Given DAILY SARAH Polyethylene Glycol 17 gm 03/15/23 04:13 Polyethylene Glycol 3350 17 Gm Powd.Pack PO QAM PRN Constipation Senna 8.6 mg 03/15/23 21:00 03/17/23 21:19 Sennosides 8.6 Mg Tablet PO 8.6 mg HS SARAH Administration Radiology Results: ITS Impressions Abdomen/Pelvis CT 03/15/23 12:50 IMPRESSION: 1. Abnormal colonic wall thickening involving the descending colon with enhancement and mild surrounding pericolonic fatty infiltration. There is trace pericolonic fluid. Considerations include colitis secondary to infectious/inflammatory etiologies as well as ischemic bowel. 2: Extensive atherosclerosis without evidence for aneurysm. Stenosis at the origin of the celiac axis, SMA and renal arteries. 3: Irregular thickening of the rectal wall which may represent inflammatory change, although malignancy is not excluded.
[2023-03-18 14:00] VITALS: BP 139/82; PULSE 79; RESP 16; TEMP 36.3; O2SAT 97
--- NOTE | 2023-03-18 14:35 | PM.IMPN ---
Progress Note: A&P Assessment and Plan (1) UTI (urinary tract infection): Code(s): N39.0 - Urinary tract infection, site not specified Status: Acute (2) Lung infiltrate: Code(s): R91.8 - Other nonspecific abnormal finding of lung field Status: Acute (3) Nausea and vomiting: Code(s): R11.2 - Nausea with vomiting, unspecified Status: Acute (4) GAVIOTA (acute kidney injury): Code(s): N17.9 - Acute kidney failure, unspecified Status: Acute Assessment and Plan: w (5) Lactic acidosis: Code(s): E87.20 - Acidosis, unspecified Status: Acute (6) Diabetes: Code(s): E11.9 - Type 2 diabetes mellitus without complications Status: Acute Assessment and Plan: (7) Hypertension: Code(s): I10 - Essential (primary) hypertension Status: Acute Assessment and Plan: Restart isosorbide as needed Holding lisinopril Plan (1) UTI (urinary tract infection): ?Code(s): N39.0 - Urinary tract infection, site not specified ?Status:?Acute ?Assessment and Plan: on Rocephin, has switched to cefepime, worsening [id number] 03/17 Urine culture grows E coli, with multiple antibiotics resistance, identified as ESBL, susceptible cefepime c/w cefepime today for total 7 days (2) Lung infiltrate: ?Code(s): R91.8 - Other nonspecific abnormal finding of lung field ?Status:?Acute ?Assessment and Plan: Per CT AP, Chest xray ordered on rocephin 2 g and Zithromax, add Flagyl IV and switch to cefepime IV, continue Z-Emeka (3) Nausea and vomiting: ?Code(s): R11.2 - Nausea with vomiting, unspecified ?Status:?Acute ?Assessment and Plan: Likely secondary to acute illness Supportive care On clear liquid diet Extensive constipation CT abdomen and pelvis reviewed CT AP with contrast 03/15 1. Abnormal colonic wall thickening involving the descending colon with enhancement and mild surrounding pericolonic fatty infiltration. There is trace pericolonic fluid. Considerations include colitis secondary to infectious/inflammatory etiologies as well as ischemic bowel. 2: Extensive atherosclerosis without evidence for aneurysm. Stenosis at the origin of the celiac axis, SMA and renal arteries. 3: Irregular thickening of the rectal wall which may represent inflammatory change, although malignancy is not excluded. Given possibility of acute infected gastroenteritis, Switch ceftriaxone 2 g IV daily, to cefepime IV add Flagyl 500 mg q.8 hours Follow-up stool culture, C diff screening (4) GAVIOTA (acute kidney injury): ?Code(s): N17.9 - Acute kidney failure, unspecified ?Status:?Acute ?Assessment and Plan: Likely pre renal azotemia resolved continue holding? lisinopril for now (5) Lactic acidosis: ?Code(s): E87.20 - Acidosis, unspecified ?Status:?Acute ?Assessment and Plan: Likely secondary to sepsis Will hold metformin (6) Diabetes: ? ??Code(s)E11.9 - Type 2 diabetes mellitus without complications ?Status:?Acute ?Assessment and Plan: SSI with accucheks and adjust as needed (7) Hypertension: ?Code(s): I10 - Essential (primary) hypertension ?Status:?Acute ?Assessment and Plan: Restart isosorbide as needed Holding lisinopril Subjective Date/time seen: 03/18/23 14:35 Interval history: I saw and examined the patient today, patient feels better today, has no cp sob,abdomen pain nausea vomiting improving. afebrile Exam Narrative: GENERAL: Pleasant, in no acute distress. Well-nourished. - EYES: EOMI. Anicteric. - HENT: Moist mucous membranes. - LUNGS: Clear to auscultation bilaterally, no wheezing, rhonchi, or rales. - CARDIOVASCULAR: Regular rate and rhythm. No murmur. No JVD. - ABDOMEN: Soft, some lower abdomen tender and non-distended. No palpable masses. - EXTREMITIES: No edema. Peripheral pulses 2+. Non-tender. - NEUROLOGIC: No focal neuro
[2023-03-18 17:04] LABS: Glucose Point of Care 339 mg/dl (65-105)
[2023-03-18] MEDS: SENNOSIDES 8.6 MG TABLET PO (20:57)
[2023-03-18 20:59] VITALS: BP 141/74; PULSE 80; RESP 18; TEMP 36.6; O2SAT 96
[2023-03-18 21:30] LABS: Glucose Point of Care 358 mg/dl (65-105)
[2023-03-19] MEDS: AZITHROMYCIN 500 MG/NS 250 ML 500 MG/250 ML BAG 250 MG IVPB ×2 (00:27→23:48)
[2023-03-19] MEDS: metroNIDAZOLE 500 MG/ISO 100ML 500 MG/100 ML BAG 100 MG IVPB ×3 (05:30→21:02)
[2023-03-19] MEDS: CEFEPIME 2 GM/NS 50 ML 2 GM/50 ML BAG IVPB ×3 (05:30→21:02)
[2023-03-19 05:39] LABS: Basophils Absolute Auto 0.1 K/mm3 (0.0-0.1); Basophils Percent Auto 0.4 % (0.2-1.2); Eosinophils Absolute Auto 0.2 K/mm3 (0-0.3); Eosinophils Percent Auto 1.2 % (0-4.4); Hematocrit 42.3 % (37.0-47.0); Hemoglobin 13.8 g/dL (12.0-15.0); Immature Granulocyte Absolute 0.04 K/mm3 (0.00-0.031); Immature Granulocyte Percent A 0.3 % (0-0.5); Lymphocytes Absolute Auto 4.69 K/mm3 (0.9-3.2); Lymphocytes Percent Auto 38.7 % (18.3-44.2); Mean Corpuscular HGB Conc 32.6 g/dl (32-36); Mean Corpuscular Hemoglobin 30.6 pg (26-34); Mean Corpuscular Volume 93.8 fl (80-100); Mean Platelet Volume 12.4 fl (7.4-10.4); Monocytes Percent Auto 7.8 % (2.6-8.5); Neutrophils Absolute Auto 6.2 K/mm3 (1.3-6.7); Neutrophils Percent Auto 51.6 % (45.5-73.1); Platelet Count Result 233 k/mm3 (150-375); Red Blood Count 4.51 M/mm3 (4.2-5.4); Red Cell Distribution Width 14.3 % (11.5-14.5); White Blood Count 12.1 K/mm3 (4.5-10.0)
[2023-03-19 05:43] VITALS: BP 159/82; PULSE 81; RESP 18; TEMP 36.6; O2SAT 95
[2023-03-19 06:32] LABS: Anion Gap 10 mmol/L (8-16); Blood Urea Nitrogen 17 mg/dL (7-17); Calcium 8.7 mg/dL (8.4-10.2); Carbon Dioxide 19 mmol/L (22-30); Chloride 107 mmol/L (98-107); Estimated CRCL calculation 55 ml/min; Estimated Glomerular Filt Rate > 60; Glucose 328 mg/dL (65-110); Sodium 136 mmol/L (137-145)
[2023-03-19 07:20] LABS: Potassium 3.5 mmol/L (3.4-5.0)
[2023-03-19 07:49] LABS: Glucose Point of Care 290 mg/dl (65-105)
--- NOTE | 2023-03-19 08:38 | PM.IMPN ---
Progress Note: A&P Assessment and Plan (1) UTI (urinary tract infection): Code(s): N39.0 - Urinary tract infection, site not specified Status: Acute (2) Lung infiltrate: Code(s): R91.8 - Other nonspecific abnormal finding of lung field Status: Acute (3) Nausea and vomiting: Code(s): R11.2 - Nausea with vomiting, unspecified Status: Acute (4) GAVIOTA (acute kidney injury): Code(s): N17.9 - Acute kidney failure, unspecified Status: Acute Assessment and Plan: w (5) Lactic acidosis: Code(s): E87.20 - Acidosis, unspecified Status: Acute (6) Diabetes: Code(s): E11.9 - Type 2 diabetes mellitus without complications Status: Acute Assessment and Plan: (7) Hypertension: Code(s): I10 - Essential (primary) hypertension Status: Acute Assessment and Plan: Restart isosorbide as needed Holding lisinopril Plan (1) UTI (urinary tract infection): ?Code(s): N39.0 - Urinary tract infection, site not specified ?Status:?Acute ?Assessment and Plan: on Rocephin, has switched to cefepime, worsening [id number] 03/17 Urine culture grows E coli, with multiple antibiotics resistance, identified as ESBL, susceptible cefepime c/w cefepime today for total 7 days, started on 03/16 (2) Lung infiltrate: ?Code(s): R91.8 - Other nonspecific abnormal finding of lung field ?Status:?Acute ?Assessment and Plan: Per CT AP, Chest xray ordered on rocephin 2 g and Zithromax, add Flagyl IV and switch to cefepime IV, continue Z-Emeka (3) Nausea and vomiting: ?Code(s): R11.2 - Nausea with vomiting, unspecified ?Status:?Acute ?Assessment and Plan: Likely secondary to acute illness Supportive care On clear liquid diet Extensive constipation CT abdomen and pelvis reviewed CT AP with contrast 03/15 1. Abnormal colonic wall thickening involving the descending colon with enhancement and mild surrounding pericolonic fatty infiltration. There is trace pericolonic fluid. Considerations include colitis secondary to infectious/inflammatory etiologies as well as ischemic bowel. 2: Extensive atherosclerosis without evidence for aneurysm. Stenosis at the origin of the celiac axis, SMA and renal arteries. 3: Irregular thickening of the rectal wall which may represent inflammatory change, although malignancy is not excluded. Given possibility of acute infected gastroenteritis, Switch ceftriaxone 2 g IV daily, to cefepime IV add Flagyl 500 mg q.8 hours Follow-up stool culture, C diff screening (4) GAVIOTA (acute kidney injury): ?Code(s): N17.9 - Acute kidney failure, unspecified ?Status:?Acute ?Assessment and Plan: Likely pre renal azotemia resolved continue holding? lisinopril for now (5) Lactic acidosis: ?Code(s): E87.20 - Acidosis, unspecified ?Status:?Acute ?Assessment and Plan: Likely secondary to sepsis Will hold metformin (6) Diabetes: ? ??Code(s)E11.9 - Type 2 diabetes mellitus without complications ?Status:?Acute ?Assessment and Plan: SSI with accucheks and adjust as needed (7) Hypertension: ?Code(s): I10 - Essential (primary) hypertension ?Status:?Acute ?Assessment and Plan: Restart isosorbide as needed Holding lisinopril Subjective Date/time seen: 03/19/23 08:38 Interval history: I saw and examined the patient today, patient feels better today, appetite is improving, no new issue even overnight, patient has no cp sob,abdomen pain nausea vomiting improving. afebrile Exam Narrative: GENERAL: Pleasant, in no acute distress. Well-nourished. - EYES: EOMI. Anicteric. - HENT: Moist mucous membranes. - LUNGS: Clear to auscultation bilaterally, no wheezing, rhonchi, or rales. - CARDIOVASCULAR: Regular rate and rhythm. No murmur. No JVD. - ABDOMEN: Soft, some lower abdomen tender and non-distended. No palpable masses. - EXTREMIT
[2023-03-19] MEDS: INSULIN ASPART (*BKC) 100 UNITS/ML SUB-Q ×7 (08:42→21:20)
--- NOTE | 2023-03-19 09:43 | PM.PNGS ---
Progress Note: A&P Assessment and Plan (1) Stercoral colitis: Code(s): K52.89 - Other specified noninfective gastroenteritis and colitis Status: Acute Assessment and Plan: exam benign, rachel diet, +bowel fxn, ok to dc home from surgical standpoint c f/u as outpt in 2 wks, home c po abx Subjective Subjective Date/Time Seen: 03/19/23 09:43 Interval history: feels tired this morning, no abd pain, +bowel fxn, rachel diet Review of Systems Review of Systems: All systems reviewed & are unremarkable except as noted in HPI and below Exam Const: General: cooperative, comfortable and no acute distress Cardio: Rate: regular rate Rhythm: regular rhythm GI: Inspection: normal to inspection and non-distended GI Palp: No abdominal tenderness, Yes Soft to palpation, No Tenderness to palpation present (GI), No Guarding due to palpation present (GI) and No Rigid due to palpation Objective Data Vital Signs Vital Signs: Vital Signs - 24 hr 03/18/23 14:00 03/18/23 20:59 03/18/23 20:00 Temperature 36.3 C L 36.6 C Pulse Rate 79 80 Respiratory Rate 16 18 Blood Pressure 139/82 141/74 H Pulse Oximetry 97 96 Oxygen Delivery Room Air 03/19/23 05:43 Temperature 36.6 C Pulse Rate 81 Respiratory Rate 18 Blood Pressure 159/82 H Pulse Oximetry 95 Oxygen Delivery Intake/Output Intake/Output: Intake & Output 03/16/23 03/17/23 03/18/23 03/19/23 23:59 23:59 23:59 23:59 Intake Total 2060 2200 2170 650 Output Total 1200 800 800 Balance 860 1400 1370 650 Meds/Results Medications: Active Medications Generic Name Dose Route Start Last Admin Trade Name Freq PRN Reason Stop Dose Admin Dextrose 12.5 gm 03/16/23 12:00 Dextrose 50% 25 Gm/50 Ml Syringe IV PUSH PRN PRN Hypoglycemia Protocol Glucagon 1 mg 03/16/23 12:00 Glucagon For Inj 1 Mg Vial IM PRN PRN Hypoglycemia Protocol Glucose 15 gm 03/16/23 12:00 Glucose Oral Gel 15 Gm Of Glucse In 37.5 Gm Tube PO PRN PRN Hypoglycemia Protocol Azithromycin 500 mg in 250 mls @ 250 mls/hr 03/15/23 00:00 03/19/23 01:27 Zithromax IVPB Infused Q24H SARAH Infusion Metronidazole 500 mg in 100 mls @ 100 mls/hr 03/16/23 14:00 03/19/23 06:30 Flagyl 500 Mg/Iso Soln 100 Ml IVPB Infused Q8HR SARAH Infusion Cefepime HCl 2 gm in 50 mls @ 100 mls/hr 03/16/23 12:00 03/19/23 06:30 Maxipime 2 Gm/Ns 50 Ml IVPB Infused Q8HR SARAH Infusion Dextrose 1,000 mls @ 100 mls/hr 03/16/23 12:00 Dextrose 5% 1,000 Ml IVPB PRN PRN Hypoglycemia Protocol Insulin Aspart 4 units 03/15/23 08:00 03/19/23 08:42 Insulin Aspart (*Bkc) 100 Units/Ml 0.05 units/kg (4 units) 4 units SUB-Q Administration TIDWM [facility] Insulin Aspart 1 - 2 units 03/15/23 22:39 03/18/23 20:59 Insulin Aspart (*Bkc) 100 Units/Ml SUB-Q 2 units HS [facility] Administration Protocol Insulin Aspart 4 - 8 units 03/16/23 12:00 03/19/23 08:43 Insulin Aspart (*Bkc) 100 Units/Ml SUB-Q 5 units TIDWM [facility] Administration Protocol Non-Formulary Medication 750 mg 03/16/23 09:00 03/17/23 13:59 Metformin PO 04/15/23 08:59 Not Given DAILY [facility] Polyethylene Glycol 17 gm 03/15/23 04:13 Polyethylene Glycol 3350 17 Gm Powd.Pack PO QAM PRN Constipation Senna 8.6 mg 03/15/23 21:00 03/18/23 20:57 Sennosides 8.6 Mg Tablet PO 8.6 mg HS [facility] Administration Radiology Results: ITS Impressions Abdomen/Pelvis CT 03/15/23 12:50 IMPRESSION: 1. Abnormal colonic wall thickening involving the descending colon with enhancement and mild surrounding pericolonic fatty infiltration. There is trace pericolonic fluid. Considerations include colitis secondary to infectious/inflammatory etiologies as well as ischemic bowel. 2: Extensive atherosclerosis without evidence for aneurysm. Stenosis at the origin of the celiac axis, SMA and renal arteries. 3: Irregular thickenin
[2023-03-19 11:58] LABS: Glucose Point of Care 402 mg/dl (65-105)
[2023-03-19 14:00] VITALS: BP 155/78; PULSE 73; RESP 14; TEMP 36.2; O2SAT 97
[2023-03-19 16:55] LABS: Glucose Point of Care 246 mg/dl (65-105)
[2023-03-19] MEDS: SENNOSIDES 8.6 MG TABLET PO (21:02)
[2023-03-19 21:07] VITALS: BP 158/72; PULSE 77; RESP 18; TEMP 36.6; O2SAT 96
[2023-03-19 21:43] LABS: Glucose Point of Care 399 mg/dl (65-105)
[2023-03-20] MEDS: CEFEPIME 2 GM/NS 50 ML 2 GM/50 ML BAG IVPB ×2 (05:48→14:10)
[2023-03-20] MEDS: metroNIDAZOLE 500 MG/ISO 100ML 500 MG/100 ML BAG 100 MG IVPB (05:48)
[2023-03-20 05:57] VITALS: BP 159/76; PULSE 80; RESP 16; TEMP 36.6; O2SAT 95
[2023-03-20 08:15] LABS: Glucose Point of Care 302 mg/dl (65-105)
[2023-03-20] MEDS: INSULIN ASPART (*BKC) 100 UNITS/ML SUB-Q ×7 (08:55→20:37)
--- NOTE | 2023-03-20 09:22 | PM.IMPN ---
Progress Note: A&P Assessment and Plan (1) UTI (urinary tract infection): Code(s): N39.0 - Urinary tract infection, site not specified Status: Acute (2) Lung infiltrate: Code(s): R91.8 - Other nonspecific abnormal finding of lung field Status: Acute (3) Nausea and vomiting: Code(s): R11.2 - Nausea with vomiting, unspecified Status: Acute (4) GAVIOTA (acute kidney injury): Code(s): N17.9 - Acute kidney failure, unspecified Status: Acute Assessment and Plan: w (5) Lactic acidosis: Code(s): E87.20 - Acidosis, unspecified Status: Acute (6) Diabetes: Code(s): E11.9 - Type 2 diabetes mellitus without complications Status: Acute Assessment and Plan: (7) Hypertension: Code(s): I10 - Essential (primary) hypertension Status: Acute Assessment and Plan: Restart isosorbide as needed Holding lisinopril Plan (1) UTI (urinary tract infection): ?Code(s): N39.0 - Urinary tract infection, site not specified ?Status:?Acute ?Assessment and Plan: on Rocephin, has switched to cefepime, worsening [id number] 03/17 Urine culture grows E coli, with multiple antibiotics resistance, identified as ESBL, susceptible cefepime c/w cefepime today for total 7 days, started on 03/16, change to bactrim po today (2) Lung infiltrate: ?Code(s): R91.8 - Other nonspecific abnormal finding of lung field ?Status:?Acute ?Assessment and Plan: Per CT AP, Chest xray ordered received rocephin 2 g and Zithromax, added Flagyl IV switched to cefepime IV, no cough or SOB (3) Nausea and vomiting: ?Code(s): R11.2 - Nausea with vomiting, unspecified ?Status:?Acute ?Assessment and Plan: Likely secondary to acute illness Supportive care On clear liquid diet Extensive constipation CT abdomen and pelvis reviewed CT AP with contrast 03/15 1. Abnormal colonic wall thickening involving the descending colon with enhancement and mild surrounding pericolonic fatty infiltration. There is trace pericolonic fluid. Considerations include colitis secondary to infectious/inflammatory etiologies as well as ischemic bowel. 2: Extensive atherosclerosis without evidence for aneurysm. Stenosis at the origin of the celiac axis, SMA and renal arteries. 3: Irregular thickening of the rectal wall which may represent inflammatory change, although malignancy is not excluded. Given possibility of acute infected gastroenteritis, Switched ceftriaxone 2 g IV daily, to cefepime IV and Flagyl 500 mg q.8 hours C diff screening negative now pt is now cefepime pt denies N/V or diarrhea. (4) GAVIOTA (acute kidney injury): ?Code(s): N17.9 - Acute kidney failure, unspecified ?Status:?Acute ?Assessment and Plan: Likely pre renal azotemia resolved continue holding? lisinopril for now (5) Lactic acidosis: ?Code(s): E87.20 - Acidosis, unspecified ?Status:?Acute ?Assessment and Plan: Likely secondary to sepsis Will hold metformin resolves (6) Diabetes: ? ??Code(s)E11.9 - Type 2 diabetes mellitus without complications ?Status:?Acute ?Assessment and Plan: SSI with accucheks and adjust as needed Aspart 4 units q.h.s. Lantus 22 units q.h.s. (7) Hypertension: ?Code(s): I10 - Essential (primary) hypertension ?Status:?Acute ?Assessment and Plan: Restart isosorbide Subjective Date/time seen: 03/20/23 09:22 Interval history: I saw and examined the patient today, patient feels better today, appetite is improving, no new issue even overnight, patient has no cp sob,abdomen pain nausea vomiting improving. afebrile Exam Narrative: GENERAL: Pleasant, in no acute distress. Well-nourished. - EYES: EOMI. Anicteric. - HENT: Moist mucous membranes. - LUNGS: Clear to auscultation bilaterally, no wheezing, rhonchi, or rales. - CARDIOVASCULAR: Regular rate and rhythm.
[2023-03-20] MEDS: INSULIN GLARGINE (*BKC) 100 UNITS/ML 20 UNITS SUB-Q (09:48)
[2023-03-20 11:58] LABS: Glucose Point of Care 278 mg/dl (65-105)
[2023-03-20 14:00] VITALS: BP 149/78; PULSE 85; RESP 16; TEMP 36.6; O2SAT 97
[2023-03-20 17:29] LABS: Glucose Point of Care 251 mg/dl (65-105)
[2023-03-20] MEDS: SULFAMETHOXAZOLE/TRIMETHOPRIM 800/160 MG DS TABLET 1 TAB PO ×2 (17:31→20:36)
[2023-03-20 20:14] LABS: Glucose Point of Care 287 mg/dl (65-105)
[2023-03-20] MEDS: SENNOSIDES 8.6 MG TABLET PO (20:36)
[2023-03-20] MEDS: INSULIN GLARGINE (*BKC) 100 UNITS/ML 22 UNITS SUB-Q (20:37)
[2023-03-20 22:00] VITALS: BP 138/89; PULSE 77; RESP 20; TEMP 35.9; O2SAT 96
[2023-03-21 06:00] VITALS: BP 131/83; PULSE 79; RESP 16; TEMP 36.8; O2SAT 97
--- NOTE | 2023-03-21 08:16 | PM.IMPN ---
Progress Note: A&P Assessment and Plan (1) UTI (urinary tract infection): Code(s): N39.0 - Urinary tract infection, site not specified Status: Acute (2) Lung infiltrate: Code(s): R91.8 - Other nonspecific abnormal finding of lung field Status: Acute (3) Nausea and vomiting: Code(s): R11.2 - Nausea with vomiting, unspecified Status: Acute (4) GAVIOTA (acute kidney injury): Code(s): N17.9 - Acute kidney failure, unspecified Status: Acute Assessment and Plan: w (5) Lactic acidosis: Code(s): E87.20 - Acidosis, unspecified Status: Acute (6) Diabetes: Code(s): E11.9 - Type 2 diabetes mellitus without complications Status: Acute Assessment and Plan: (7) Hypertension: Code(s): I10 - Essential (primary) hypertension Status: Acute Assessment and Plan: Restart isosorbide as needed Holding lisinopril Plan (1) UTI (urinary tract infection): ?Code(s): N39.0 - Urinary tract infection, site not specified ?Status:?Acute ?Assessment and Plan: on Rocephin, has switched to cefepime, worsening [id number] 03/17 Urine culture grows E coli, with multiple antibiotics resistance, identified as ESBL, susceptible cefepime 03/20 on cefepime, started on 03/16, change to bactrim po 03/21 pt does not experience side effects of Bactrim, continue Bactrim p.o. on discharge (2) Lung infiltrate: ?Code(s): R91.8 - Other nonspecific abnormal finding of lung field ?Status:?Acute ?Assessment and Plan: Per CT AP, Chest xray ordered received rocephin 2 g and Zithromax, added Flagyl IV switched to cefepime IV, no cough or SOB (3) Nausea and vomiting: ?Code(s): R11.2 - Nausea with vomiting, unspecified ?Status:?Acute ?Assessment and Plan: Likely secondary to acute illness Supportive care On clear liquid diet Extensive constipation CT abdomen and pelvis reviewed CT AP with contrast 03/15 1. Abnormal colonic wall thickening involving the descending colon with enhancement and mild surrounding pericolonic fatty infiltration. There is trace pericolonic fluid. Considerations include colitis secondary to infectious/inflammatory etiologies as well as ischemic bowel. 2: Extensive atherosclerosis without evidence for aneurysm. Stenosis at the origin of the celiac axis, SMA and renal arteries. 3: Irregular thickening of the rectal wall which may represent inflammatory change, although malignancy is not excluded. Given possibility of acute infected gastroenteritis, Switched ceftriaxone 2 g IV daily, to cefepime IV and Flagyl 500 mg q.8 hours C diff screening negative Received antibiotics see above pt denies N/V or diarrhea. (4) GAVIOTA (acute kidney injury): ?Code(s): N17.9 - Acute kidney failure, unspecified ?Status:?Acute ?Assessment and Plan: Likely pre renal azotemia resolved (5) Lactic acidosis: ?Code(s): E87.20 - Acidosis, unspecified ?Status:?Acute ?Assessment and Plan: Likely secondary to sepsis metformin on hold during hospitalization Likely acidosis has resolved (6) Diabetes: ? ??Code(s)E11.9 - Type 2 diabetes mellitus without complications ?Status:?Acute ?Assessment and Plan: SSI with accucheks and adjust as needed Aspart 4 units q.h.s. Lantus 22 units q.h.s. Glucose is better controlled (7) Hypertension: ?Code(s): I10 - Essential (primary) hypertension ?Status:?Acute ?Assessment and Plan: Restart isosorbide Subjective Date/time seen: 03/21/23 08:16 Interval history: I saw and examined the patient today, patient feels better today, appetite is improving, no new issue even overnight, patient has no cp sob,abdomen pain nausea vomiting improving. afebrile Exam Narrative: GENERAL: Pleasant, in no acute distress. Well-nourished. - EYES: EOMI. Anicteric. - HENT: Moist mucous membranes. - LUNGS: Cl
--- NOTE | 2023-03-21 08:31 | PM.DS ---
DS: Admitting Diagnosis Discharge Date 03/21/23 Admitting Diagnosis (1) UTI (urinary tract infection): ?Code(s): N39.0 - Urinary tract infection, site not specified ?Status:?Acute (2) Lung infiltrate: ?Code(s): R91.8 - Other nonspecific abnormal finding of lung field ?Status:?Acute (3) Nausea and vomiting: ?Code(s): R11.2 - Nausea with vomiting, unspecified ?Status:?Acute (4) GAVIOTA (acute kidney injury): ?Code(s): N17.9 - Acute kidney failure, unspecified ?Status:?Acute ?Assessment and Plan: w (5) Lactic acidosis: ?Code(s): E87.20 - Acidosis, unspecified ?Status:?Acute (6) Diabetes: ?Code(s): E11.9 - Type 2 diabetes mellitus without complications ?Status:?Acute ?Assessment and Plan: ? (7) Hypertension: ?Code(s): I10 - Essential (primary) hypertension ?Status:?Acute ?Assessment and Plan: Restart isosorbide as needed Holding lisinopril DS: Discharge Diagnosis Discharge Diagnosis (1) UTI (urinary tract infection): Code(s): N39.0 - Urinary tract infection, site not specified Status: Acute (2) Lung infiltrate: Code(s): R91.8 - Other nonspecific abnormal finding of lung field Status: Acute (3) Nausea and vomiting: Code(s): R11.2 - Nausea with vomiting, unspecified Status: Acute (4) GAVIOTA (acute kidney injury): Code(s): N17.9 - Acute kidney failure, unspecified Status: Acute Assessment and Plan: w (5) Lactic acidosis: Code(s): E87.20 - Acidosis, unspecified Status: Acute (6) Diabetes: Code(s): E11.9 - Type 2 diabetes mellitus without complications Status: Acute Assessment and Plan: (7) Hypertension: Code(s): I10 - Essential (primary) hypertension Status: Acute Assessment and Plan: Restart isosorbide as needed Holding lisinopril DS: Summary Hospital Course Hospital Course: Per H&P, this is an 82-year-old female with past medical history significant for insulin-dependent diabetes mellitus, hypertension.? Patient presents to the emergency room due to nausea vomiting abdominal pain constipation.? Generalized weakness, generalized malaise, patient was brought from adult daycare had multiple bouts of emesis and blood pressure systolic in the 80s.? Preliminary workup was significant for CBC with a leukocyte count of 24,000, basic metabolic? profile bicarb 20, BUN 18 creatinine 1.2 lactic acid 2.5 a urinalysis showed 50-100 per high-power field of WBCs.? The following medical issues have been addressed during hospitalization (1) UTI (urinary tract infection): ?Code(s): N39.0 - Urinary tract infection, site not specified ?Status:?Acute ?Assessment and Plan: on Rocephin, has switched to cefepime, worsening /12 03/17 Urine culture grows E coli, with multiple antibiotics resistance, identified as ESBL, susceptible cefepime 03/20 on cefepime, started on 03/16, change to bactrim po 03/21 pt does not experience side effects of Bactrim, continue Bactrim p.o. on discharge (2) Lung infiltrate: ?Code(s): R91.8 - Other nonspecific abnormal finding of lung field ?Status:?Acute ?Assessment and Plan: Per CT AP, Chest xray ordered received rocephin 2 g and Zithromax, added Flagyl IV switched to cefepime IV, no cough or SOB (3) Nausea and vomiting: ?Code(s): R11.2 - Nausea with vomiting, unspecified ?Status:?Acute ?Assessment and Plan: Likely secondary to acute illness Supportive care On clear liquid diet Extensive constipation CT abdomen and pelvis reviewed CT AP with contrast 03/15 1. Abnormal colonic wall thickening involving the descending colon with enhancement and mild surrounding pericolonic fatty infiltration. There is trace pericolonic fluid. Considerations include colitis secondary to infectious/inflammatory etiologies as well as ischemic bowel
[2023-03-21 08:44] LABS: Glucose Point of Care 184 mg/dl (65-105)
[2023-03-21] MEDS: ISOSORBIDE MONONITRATE 30 MG TAB.ER.24H PO (09:20)
[2023-03-21] MEDS: SULFAMETHOXAZOLE/TRIMETHOPRIM 800/160 MG DS TABLET 1 TAB PO (09:20)
[2023-03-21] MEDS: INSULIN ASPART (*BKC) 100 UNITS/ML SUB-Q ×3 (09:21→12:58)
[2023-03-21 09:29] LABS: Basophils Absolute Auto 0.1 K/mm3 (0.0-0.1); Basophils Percent Auto 0.3 % (0.2-1.2); Eosinophils Absolute Auto 0.2 K/mm3 (0-0.3); Eosinophils Percent Auto 1.4 % (0-4.4); Hematocrit 41.9 % (37.0-47.0); Hemoglobin 13.3 g/dL (12.0-15.0); Immature Granulocyte Absolute 0.05 K/mm3 (0.00-0.031); Immature Granulocyte Percent A 0.3 % (0-0.5); Lymphocytes Percent Auto 29.9 % (18.3-44.2); Mean Corpuscular HGB Conc 31.7 g/dl (32-36); Mean Corpuscular Hemoglobin 29.8 pg (26-34); Mean Corpuscular Volume 93.7 fl (80-100); Mean Platelet Volume 12.4 fl (7.4-10.4); Monocytes Absolute Auto 1.1 K/mm3 (0.1-0.6); Monocytes Percent Auto 7.4 % (2.6-8.5); Neutrophils Absolute Auto 8.7 K/mm3 (1.3-6.7); Neutrophils Percent Auto 60.7 % (45.5-73.1); Platelet Count Result 244 k/mm3 (150-375); Red Blood Count 4.47 M/mm3 (4.2-5.4); Red Cell Distribution Width 14.6 % (11.5-14.5); White Blood Count 14.4 K/mm3 (4.5-10.0)
[2023-03-21 09:44] LABS: Hemoglobin A1C 8.6 % (<5.7)
[2023-03-21 10:22] LABS: Anion Gap 7 mmol/L (8-16); Blood Urea Nitrogen 11 mg/dL (7-17); Calcium 8.6 mg/dL (8.4-10.2); Carbon Dioxide 22 mmol/L (22-30); Chloride 108 mmol/L (98-107); Estimated CRCL calculation 55 ml/min; Estimated Glomerular Filt Rate > 60; Glucose 205 mg/dL (65-110); Potassium 3.5 mmol/L (3.4-5.0); Sodium 137 mmol/L (137-145)
--- NOTE | 2023-03-21 11:49 | PC.NURSE ---
27 minutes spent on the phone with patients daughter/caregiver. This nurse spoke at length last week with same person regarding blood sugar, diabetes, and all the things surrounding being a diabetic. Once again caregiver was reminded to check blood sugars before every meal and at bedtime. Doctor has ordered new sliding scale and scheduled insulin for patient. Patients a1c is 8.6 at this time. Information provided to caregiver what that means. Caregiver verbalized understanding regarding diabetes, blood sugar, and insulin. Discharge packet contains extensive information regarding diabetes. This nurse has also included the diabetic booklet. Reinforcement needed to both patient and caregiver.
[2023-03-21 11:54] LABS: Glucose Point of Care 234 mg/dl (65-105)
--- NOTE | 2023-03-21 16:16 | PC.NURSE ---
Pt daughter came to [facility] patient. Discharge packet thoroughly gone over. Family was very unhappy with the new insulin regimen. Multiple explanations given on reason for the changes. Instructions including visual and written were given to caregiver. Caregiver stated that she has a life and a job and was not interested in doing all of the changes necessary to help with her moms blood sugar levels. This nurse printed out all of the blood sugar reading for this visit and her a1c, gave caregiver diabetic booklet and contact information for the elementary educator. Patient caregiver said that she will take her to her doctor appt on monday and will have them evaluate her needs. This nurse has had multiple conversations with this particular family member and each time she has not been open to receiving the necessary education. Pt is not able to fully comprehend all instructions so the daughter is the main person for education at this time.
--- NOTE | 2023-03-22 11:40 | PC.NURSE ---
Helen, daughter to patient called this morning. Yesterday at discharge over an hour was spent explaining in detail insulin administration and parameters. This morning Helen called asking about insulin and when to give it. Helen states that she has not been able to get the novolog from the pharmacy. I highly encouraged Helen and the patient to use the information I gave for the clinical nurse educator. I let them know the importance of getting more education so that they can better manage the patients diabetes together. Daughter angry that we gave her these orders. I explained at length(again) the reasoning for the insulin changes. I believe I answered all questions to her satisfaction. Reminded her that if sugars become too high or too low the dangers associated. Informed of when to come to the e.r. or consider nursing home care if she feels she is unable to safely manage her at home.
== END 2023-03-21 15:30 | disposition home health service (06) | DRG 872 ==
LOC: ANHED 12:16 → ANH3MEDSUR 17:13 → ANH3MED 17:30
PROVIDERS: Internal Medicine; Admitting Provider Chiropractor; Emergency Provider Emergency Medicine; Visit Provider Hospitalist
DX: A41.9 Sepsis, unspecified organism (principal); N39.0 Urinary tract infection, site not specified; N17.9 Acute kidney failure, unspecified; E87.21 Acute metabolic acidosis; Z16.12 Extended spectrum beta lactamase (ESBL) resistance; B96.20 Unspecified Escherichia coli [E. coli] as the cause of diseases classified elsewhere; K52.89 Other specified noninfective gastroenteritis and colitis; R91.8 Other nonspecific abnormal finding of lung field; E11.9 Type 2 diabetes mellitus without complications; I10 Essential (primary) hypertension; R11.2 Nausea with vomiting, unspecified; R93.5 Abnormal findings on diagnostic imaging of other abdominal regions, including retroperitoneum
CPT/HCPCS: 36415; 71045; 74176; 74177; 80048; 80053; 81001; 82948; 83036; 83605; 83690; 85025; 87077; 87086; 87186; 96361; 96365; 96366; 96367; 96375; 96376; 99285; A9270; G0378; J0456; J0692; J0696; J1200; J1815; J1836; J2920; J7030; Q9967